=== PATIENT | male | born 1960 | race Caucasian/White ===

== ENCOUNTER 2018-06-07 21:46 | Outpatient (CLI) | payer OTHER, SELFPAY ==
[2018-06-07 22:31] LABS: Abs Immature Grans 0.05 k/cumm (0.0-0.09); Absolute Basophil Count 0.04 k/cumm (0.0-0.2); Absolute Eosinophil Count 0.12 k/cumm (0.0-0.7); Absolute Lymphocyte Count 1.66 k/cumm (1.2-3.4); Absolute Monocyte Count 0.96 k/cumm (0.11-0.7); Absolute Neutrophil Count 4.69 k/cumm (1.2-6.7); Basophils % 0.5; Eosinophils % 1.6; HCT 40.4 % (40.0-50.0); HGB 13.8 g/dL (13.5-17.5); Immature Grans % 0.7; Lymphocytes % 22.1; Mean Corp. HGB Concentration 34.2 g/dL (32.0-36.0); Mean Corpuscular Hemoglobin 29.3 pg (27.0-33.0); Mean Corpuscular Volume 85.8 fL (80-95); Mean Platelet Volume 9.3 fL (8.0-11.0); Monocytes % 12.8; Neutrophils % 62.3; Platelet Count 239 x1000/uL (130-400); RBC 4.71 m/cumm (4.50-6.00); RBC Distribution Width 14.6 % (11.8-14.1); White Blood Cell Count 7.52 k/cumm (4.4-10.8)
[2018-06-07 22:57] LABS: Anion Gap 10.9 mmol/L (3-11); BUN 16 mg/dL (7-18); CO2 28.1 mmol/L (21.0-32.0); CREATININE 1.09 mg/dL (0.70-1.30); Calcium 9.5 mg/dL (8.5-10.1); Chloride 99 mmol/L (98-107); Glucose 95 mg/dL (70-100); Sodium 138 mmol/L (136-145)
[2018-06-10 10:35] LABS: Cryoglobulin, S Negative %ppt (Negative)
== END 2018-06-07 22:06 ==
PROVIDERS: PCP Nurse Practitioner; Visit Provider Internal Medicine Rheumatology
DX: M25.50 Pain in unspecified joint (principal); R50.9 Fever, unspecified; I10 Essential (primary) hypertension; Z15.89 Genetic susceptibility to other disease
CPT/HCPCS: 36410; 80048; 87040; 87077; 82595; 85025

== ENCOUNTER 2018-12-23 15:26 | Outpatient (REF) | payer OTHER, SELFPAY ==
[2018-12-23 19:30] LABS: COMMENT (LAB VIEW ONLY) 158.63 mg/dL; Microalb ug/mg Crea 3.9 ug/mg Cr
== END 2018-12-23 15:46 ==
LOC: LBN 15:26
PROVIDERS: PCP Nurse Practitioner; Visit Provider Nurse Practitioner
DX: E11.9 Type 2 diabetes mellitus without complications (principal)
CPT/HCPCS: 82043; 82570

== ENCOUNTER 2019-04-13 09:27 | Outpatient (CLI) | payer OTHER, SELFPAY ==
[2019-04-13 10:04] LABS: HCT 42.1 % (40.0-50.0); HGB 13.9 g/dL (13.5-17.5); Mean Corpuscular Hemoglobin 28.4 pg (27.0-33.0); Mean Corpuscular Volume 85.9 fL (80-95); Mean Platelet Volume 9.4 fL (8.0-11.0); Platelet Count 267 x1000/uL (130-400); RBC Distribution Width 14.2 % (11.8-14.1); White Blood Cell Count 5.52 k/cumm (4.4-10.8)
[2019-04-13 10:33] LABS: ALT 25 U/L (12-78); AST 20 U/L (15-37); Albumin 3.4 g/dL (3.4-5.0); Alkaline Phosphatase 103 U/L (46-116); Anion Gap 10.3 mmol/L (3-11); BUN 16 mg/dL (7-18); Bilirubin, Total 0.3 mg/dL (0.2-1.0); CO2 25.7 mmol/L (21.0-32.0); CREATININE 1.07 mg/dL (0.70-1.30); Calcium 8.9 mg/dL (8.5-10.1); Calculated LDL 140 mg/dL; Chloride 105 mmol/L (98-107); Cholesterol 196 mg/dL (50-200); Glucose 106 mg/dL (70-100); HDL Cholesterol 42 mg/dL (40-60); Potassium 4.7 mmol/L (3.5-5.1); Sodium 141 mmol/L (136-145); Total Protein 6.8 g/dL (6.4-8.2); Triglyceride 71 mg/dL (30-150)
== END 2019-04-13 09:47 ==
PROVIDERS: PCP Nurse Practitioner; Visit Provider Nurse Practitioner
DX: I10 Essential (primary) hypertension (principal); E78.5 Hyperlipidemia, unspecified; E11.9 Type 2 diabetes mellitus without complications; E66.9 Obesity, unspecified
CPT/HCPCS: 36415; 80053; 80061; 83721; 85027

== ENCOUNTER 2019-12-19 08:12 | Outpatient (RCR) | payer OTHER, SELFPAY ==
[2019-12-19 08:38] LABS: Abs Immature Grans 0.03 k/cumm (0.0-0.09); Absolute Basophil Count 0.05 k/cumm (0.0-0.2); Absolute Eosinophil Count 0.21 k/cumm (0.0-0.7); Absolute Lymphocyte Count 2.14 k/cumm (1.2-3.4); Absolute Monocyte Count 0.74 k/cumm (0.11-0.7); Absolute Neutrophil Count 2.95 k/cumm (1.2-6.7); Basophils % 0.8; Eosinophils % 3.4; HCT 41.7 % (40.0-50.0); Immature Grans % 0.5 %; Mean Corp. HGB Concentration 33.6 g/dL (32.0-36.0); Mean Corpuscular Hemoglobin 28.1 pg (27.0-33.0); Mean Corpuscular Volume 83.7 fL (80-95); Mean Platelet Volume 9.3 fL (8.0-11.0); Monocytes % 12.1; Neutrophils % 48.2; Platelet Count 292 x1000/uL (130-400); RBC 4.98 m/cumm (4.50-6.00); RBC Distribution Width 14.6 % (11.8-14.1); White Blood Cell Count 6.12 k/cumm (4.4-10.8)
[2019-12-19 08:51] LABS: ALT 21 U/L (16-63); AST 22 U/L (15-37); Albumin 3.4 g/dL (3.4-5.0); Alkaline Phosphatase 102 U/L (46-116); Anion Gap 8.1 mmol/L (3-11); BUN 17 mg/dL (7-18); Bilirubin, Total 0.3 mg/dL (0.2-1.0); CO2 26.9 mmol/L (21.0-32.0); CREATININE 1.04 mg/dL (0.70-1.30); Calcium 9.2 mg/dL (8.5-10.1); Chloride 102 mmol/L (98-107); Glucose 100 mg/dL (74-106); Potassium 4.3 mmol/L (3.5-5.1); Sodium 137 mmol/L (136-145); Total Protein 7.3 g/dL (6.4-8.2)
[2019-12-19] MEDS: Normal Saline Flush 10 ML SYR 30 ML IVP (12:30)
== END 2019-12-22 23:59 | disposition home or self-care (01) ==
LOC: INF 08:12
PROVIDERS: PCP Nurse Practitioner; Visit Provider Internal Medicine Hematology & Oncology
DX: C15.5 Malignant neoplasm of lower third of esophagus (principal)
CPT/HCPCS: 36415; 80053; 85025

== ENCOUNTER 2019-12-30 15:16 | Emergency (ER) | payer OTHER, SELFPAY ==
--- NOTE | 2019-12-30 15:17 | ED.GENADUL_ITS ---
Discharge Plan Disposition Patient Disposition: HOME Condition: Good Discharge Details Chief Complaint: Fever Clinical Impression: Fever, Anemia Primary Care Provider: Baylee Lozoya ED Provider: Lidia Cohen Home Meds and New Rx's Prescriptions: Continued hawthorn 500 mg capsule 565 mg PO BID RF: 0 losartan 100 mg tablet 100 mg PO DAILY Qty: 90 RF: 3 colchicine 0.6 mg tablet 0.6 mg PO DAILY Qty: 30 RF: 0 melatonin 5 MG tablet 5 mg PO HS RF: 0 nystatin 15 GM cream 1 gm Topical TID Qty: 15 RF: 3 lidocaine patch 5% 5 % 1 patch Topical RF: 0 calcipotriene [Dovonex] 0.005 % cream 1 applic TP BID PRNRF: 0 spironolactone 25 mg tablet 25 mg PO DAILY 90 Days Qty: 90 RF: 3 ibuprofen 800 mg tablet 800 mg PO TID PRN (Reason: fever or pain) Qty: 270 RF: 3 omeprazole 20 mg capsule,delayed release(DR/EC) 20 mg PO DAILY RF: 0 metformin 500 mg tablet extended release 24hr 1,000 mg PO DAILY Qty: 180 RF: 3 morphine 15 mg capsule 15 mg PO RF: 0 acetaminophen 500 mg capsule 1,000 mg PO Q6H PRNRF: 0 aspirin [Aspir-81] 81 MG tablet,delayed release (DR/EC) 81 mg PO DAILY RF: 0 magnesium oxide 400 MG tablet 400 mg PO DAILY Qty: 100 RF: 0 Discharge Instructions Instructions: Fever in Adults (ED), Anemia (ED) Additional Instructions: Your labs are reassuring today. You do have worsening anemia. I am concerned that you may have COVID-19. Your test result for this is pending. We will call you with any positive results. Please quarantine at home until you hear results. Please encourage water intake. Please stay in touch with oncology. If you develop new/worsening symptoms please seek care urgently once again. Stand Alone Forms: PENDING COVID-19 TESTING Referrals: Baylee Lozoya, LUCAS [Primary Care Provider] - Discharge Data Discharge Date/Time-TO BE ENTERED AT DEPARTURE: 12/30/19 19:00 Medical Decision Making Patient is a pleasant 59-year-old gentleman presents today with chief complaint of fever. Patient is currently undergoing chemo and radiation for esophageal cancer. Reports that he is having daily radiation and twice weekly chemotherapy. Reports that he had to cancel his radiation appointment this morning as he had a fever of 101.4 ?F at home. Patient reports that he has chronic intermittent fevers of unknown origin. States that this started long before his cancer diagnosis. States that he has had this evaluated multitude of times with no known source. He reports that typically he is able to use Tylenol with good relief of his symptoms. However, he states that today the Tylenol took longer to work than typical. He consulted with his oncologist who advised that he come in for evaluation of potential neutropenic fever. Patient reports that he has a chronic cough which is unchanged. He denies any dyspnea, pleuritic chest pain, increased sputum production or change in color. States he had some clear nasal discharge first thing this morning but that this and rizvi bsequently resolved. He denies any sinus pain. No ear pain. Denies any sore throat. Denies chest pain, shortness of breath. Denies any abdominal discomfort. No change in stools. Normal bowel movement today. Denies any dysuria, increased frequency urgency. No new back pain. Denies any rash. On exam, patient is resting comfortably. Currently afebrile. He is slightly tachycardic at 101 but vital signs are without abnormality otherwise. He appears nontoxic. Appears well-hydrated. Normal HEENT exam. No nuchal rigidity. No rash. Lungs are clear. Normal cardiac exam. Abdomen is benign. No lower extremity swelling or rash noted. No CVA tenderness noted. As there is concern for the patient having a neutropenic fever, plan for laboratory evaluation. Will obtain chest x-ray as the patient has had this chronic cough to ensure no underlying pneumonia. Lung sounds were clear on exam. Discussed this plan with the patient who is in agreement. Labs reviewed. Patient's white count is slightly low at 3.15. However, his absolute neutrophil count is normal at 2.32. His lymphocyte count however is low at 0.45. Patient is anemic with a hemoglobin of 8.8, this is downtrending from 9.74 days ago. Lactate is normal at 1.0. Remaining labs are pending. With a low lymphocyte count and current pandemic, COVID is on the differential although he is not endorsing cold-like symptoms at this time. If patient is able to be discharged home, will plan for outpatient Waqas testing. Will consult with oncology once remaining labs are back. CXR reviewed by radiologist: FINDINGS: Lungs: Unremarkable. No consolidation. Pleural space: Unremarkable. No pleural effusion. No pneumothorax. Heart/Mediastinum: Unremarkable. No cardiomegaly. Bones/joints: There are degenerative changes of the thoracic spine. IMPRESSION: Degenerative changes of the thoracic spine. No significant change allowing for differences in technique when compared to the earlier study. In light of the patient's symptoms further evaluation could be obtained with a CT scan of the chest. Requested consulted with oncology. Spoke with Dr. Angeles Laura. We discussed the patient's presentation and laboratory evaluation. I did express my concern for potential COVID-19. Will order an in department test as Dr. Laura advises that the patient's chemotherapy and radiation will have to be held until this test is returned. She agrees that discharge to home sounds appropriate in this patient as he is currently asymptomatic with stable vital signs and reassuring laboratory evaluation. Patient has plan for radiation treatment on Thursday. He will stay in touch oncology. We will contact him with any positive results. Patient was given strict return precautions and is able to return with any new or worsening symptoms. He continues to be asymptomatic while here. All of his questions and concerns were addressed and he is in agreement this plan. [facility] General Mode of arrival: ambulatory . Date/Time Provider Initiated Documentation: 12/30/19 15:17 . Limitations to Documentation: no limitations . Information obtained by: patient, RN/MD (called by oncology group prior to arrival) and RN notes reviewed . History of Present Illness 59 year old M presents to the emergency department with the chief complaint of fever, possibly neutropenic in the setting of recent chemotherapy and radia, described as similar to prior episodes (Reports chronic intermittent fevers of unknown origin), Quality is described as other (Patient denies any pain), Patient started experiencing this hour(s) and it has been now resolved. Medication improves symptom(s), (Resolved 2 to 3 hours after oral Tylenol dosing) No exacerbating factors reported . Patient notes cough (Reports chronic, unchan ged nonproductive cough), fever/chills, loss of appetite (States that his appetite is increasing although chronically low associated with his cancer treatment) and malaise; denies chest pain, diaphoresis, headaches, nausea/vomiting, rash, shortness of breath, syncope and weakness. Patient did receive the following treatments prior to arrival, other (Acetaminophen) Related Data Home Medications Medication Instructions Recorded Confirmed aspirin [Aspir-81] 81 mg PO DAILY 02/14/14 12/30/19 melatonin 5 mg PO HS 09/15/16 12/30/19 magnesium oxide 400 mg PO DAILY #100 tab 12/21/16 12/30/19 nystatin 1 gm TOPICAL TID #15 gm 02/12/17 12/30/19 Lidocaine Patch 5% 1 patch TOPICAL 04/05/18 12/30/19 hawthorn 500 mg capsule 565 mg PO BID cap 06/30/18 12/30/19 calcipotriene 0.005 % topical cream 1 applic TP BID PRN 12/21/18 12/30/19 spironolactone 25 mg tablet 25 mg PO DAILY 90 Days #90 tab-cap 03/14/19 12/30/19 colchicine 0.6 mg tablet 0.6 mg PO DAILY #30 tab 04/13/19 12/30/19 ibuprofen 800 mg tablet 800 mg PO TID PRN #270 tab-cap 06/06/19 12/30/19 losartan 100 mg tablet 100 mg PO DAILY #90 tab-cap 10/12/19 12/30/19 omeprazole 20 mg capsule,delayed 20 mg PO DAILY 10/12/19 12/30/19 release metformin 500 mg tablet,extended 1,000 mg PO DAILY #180 tab 11/17/19 12/30/19 release 24hr acetaminophen 500 mg capsule 1,000 mg PO Q6H PRN cap 11/24/19 12/30/19 morphine 15 mg capsule 15 mg PO cap 11/24/19 12/30/19 Previous Rx's Medication Instructions Recorded magnesium oxide 400 mg PO DAILY #100 tab 12/21/16 spironolactone 25 mg tablet 25 mg PO DAILY 90 Days #90 tab-cap 03/14/19 colchicine 0.6 mg tablet 0.6 mg PO DAILY #30 tab 04/13/19 ibuprofen 800 mg tablet 800 mg PO TID PRN #270 tab-cap 06/06/19 losartan 100 mg tablet 100 mg PO DAILY #90 tab-cap 10/12/19 metformin 500 mg tablet,extended 1,000 mg PO DAILY #180 tab 11/17/19 release 24hr Allergies Allergy/AdvReac Type Severity Reaction Status Date / Time lisinopril AdvReac Mild Cough Verified 12/30/19 15:26 Penicillins AdvReac Mild belly ache Verified 12/30/19 15:26 Review of Systems Constitutional Constitutional: Reports as per HPI, Reports chills, Reports fever(s), Denies headache(s), Reports malaise and Reports poor appetite Eyes Eyes: Reports as per HPI, Denies change in vision, Denies eye discharge and Denies irritation ENT Ears, Nose, Mouth, and Throat: Reports as per HPI, Denies bleeding gums, Denies dental pain, Denies vertigo, Denies dizziness, Denies ear discharge, Denies otalgia, Denies headache(s), Denies lip swelling, Denies mouth pain, Denies nasal congestion, Reports nasal discharge (Reports this morning a small amount of nasal discharge, since resolved), Denies nasal trauma, Denies neck pain, Denies sinus pain, Denies sinus pressure, Denies sore throat and Denies throat swelling Cardiovascular Cardiovascular: Reports as per HPI, Denies chest pain, Denies dyspnea and Denies dyspnea on exertion Respiratory Respiratory: Reports as per HPI, Denies chest congestion, Reports cough, Denies hemoptysis, Denies excessive phlegm production, Denies pain on inspiration, Denies pain with cough, Denies dyspnea, Denies dyspnea on exertion, Denies stridor and Denies wheezing Gastrointestinal Gastrointestinal: Reports as per HPI, Denies abdominal pain, Denies change in bowel habits, Denies nausea and Denies vomiting Genitourinary Genitourinary: Reports system reviewed and no additional complaints, except as documented (Denies any dyspnea, increased frequency urgency) Musculoskeletal Musculoskeletal: Denies neck pain Integumentary/Breasts Skin/Breast: Reports as per HPI and Denies rash Neurologic Neurologic: Reports as per HPI, Denies vertigo, Denies dizziness and Denies headache(s) Allergic/Immunologic Allergic/Immunologic: Denies lip swelling, Denies throat swelling and Denies wheezing [facility] Medical History Arthralgia (Acute) DM (diabetes mellitus) Essential hypertension GERD (gastroesophageal reflux disease) Tobacco use Surgical History Colonoscopy - MAC (07/24/17) Family History Mother Cancer Father Cancer Social History Smoking/Tobacco Use Status: Current every day Tobacco Type: cigarettes Smoking packs per day: 1 Smoking cigarettes per day: 20.0 Years smoked: 30 Smoking pack- years: 30.00 Tobacco: How many years used: 30 Smoking risk assessment performed?: Yes Alcohol Intake: current Alcohol Intake frequency: a few times a month Drug use: Never Substance use type: does not use Adopted: No Caregiver/Support person: No Foster care: No Household members: spouse Housing: house Number of Children: 3 Communication Needs: None current occupation: [employer] What type of physical activity do you participate in: walking and other Details: walks a lot at work, nothing aerobic, some house projects Frequency: 5-6 times per week Do you feel safe in your relationship?: Yes Exam Const General: cooperative, healthy appearing, comfortable, no acute distress, well developed and well groomed Nutritional Appearance: average body habitus and well nourished Orientation: alert and awake [facility] Head: normal to inspection, normocephalic and atraumatic Ears: hearing grossly normal bilaterally, external ears normal and TM's normal bilaterally General nose exam: external nose normal and nares normal Face and sinus: normal facial exam, sinuses nontender and face symmetric Mouth: oral mucosae normal, lip normal, tongue normal, oropharynx normal and moist mucous membranes Teeth and gingiva: dentition normal Throat: posterior oropharynx normal, tonsils normal and uvula midline Eyes General: appearance normal, both eyes and all related structures Neck Neck: normal visual inspection, full ROM, no lymphadenopathy and no meningeal signs Resp Effort & Inspection: normal respiratory effort, able to speak in complete sentences and no respiratory distress Auscultation: clear to auscultation bilaterally, no rales, no rhonchi and no wheezes Cardio Rate: regular rate Rhythm: regular rhythm Heart Sounds: S1 normal and S2 normal GI Inspection: normal to inspection Palpation: soft, no hepatosplenomegaly, not firm, no guarding, not rigid and nontender Percussion: normal to percussion Auscultation: normal bowel sounds Back/Spine/Pelvis Back: no CVA tenderness Skin General skin exam: no rashes or lesions noted Neuro General: patient alert and patient awake Cognition: normal cognition Speech: speech normal Gait: normal gait Extrem General: normal to inspection, capillary refill normal, no joint enlargement, no pedal edema, no calf tenderness and normal gait Psych Appearance: grossly normal and well kempt Mental Status: mental status grossly normal Speech and Movement: speech and movement normal
[2019-12-30 15:23] VITALS: BP 124/81; PULSE 101; RESP 18; TEMP 36.6; O2SAT 99
--- NOTE | 2019-12-30 15:41 | DI.RAD_ITS ---
EXAM: XR PORTABLE CHEST AP CLINICAL HISTORY: neurtropenic fever, cough. TECHNIQUE: 2D digital imaging was performed. COMPARISON: CR CHEST 2 VIEWS PA,LAT from 12/20/2016 CR LEFT SHOULDER COMPLETE from 02/22/2018 FINDINGS: LUNGS: Clear. No pleural abnormality seen. HEART: Normal. MEDIASTINUM: Normal. OTHER FINDINGS: None. IMPRESSION: No acute pulmonary findings. DATA REPOSITORY: RADIATION DOSE DELIVERED:
[2019-12-30] MEDS: Normal Saline 1,000 ML 1000 ML IV (16:27)
[2019-12-30 16:34] LABS: Abs Immature Grans 0.02 k/cumm (0.0-0.09); Absolute Basophil Count 0.01 k/cumm (0.0-0.2); Absolute Eosinophil Count 0.11 k/cumm (0.0-0.7); Absolute Lymphocyte Count 0.45 k/cumm (1.2-3.4); Absolute Monocyte Count 0.24 k/cumm (0.11-0.7); Absolute Neutrophil Count 2.32 k/cumm (1.2-6.7); Basophils % 0.3; Eosinophils % 3.5; HCT 26.8 % (40.0-50.0); HGB 8.8 g/dL (13.5-17.5); Immature Grans % 0.6 %; Lymphocytes % 14.3; Mean Corp. HGB Concentration 32.8 g/dL (32.0-36.0); Mean Corpuscular Hemoglobin 28.2 pg (27.0-33.0); Mean Corpuscular Volume 85.9 fL (80-95); Mean Platelet Volume 9.1 fL (8.0-11.0); Monocytes % 7.6; Neutrophils % 73.7; Platelet Count 259 x1000/uL (130-400); RBC 3.12 m/cumm (4.50-6.00); RBC Distribution Width 14.4 % (11.8-14.1); White Blood Cell Count 3.15 k/cumm (4.4-10.8)
[2019-12-30 16:53] LABS: C-Reactive Protein 3.78 mg/dL (0.0-0.3)
[2019-12-30 16:54] LABS: ALT 19 U/L (16-63); AST 17 U/L (15-37); Albumin 3.1 g/dL (3.4-5.0); Alkaline Phosphatase 79 U/L (46-116); Anion Gap 7.2 mmol/L (3-11); BUN 15 mg/dL (7-18); Bilirubin, Total 0.2 mg/dL (0.2-1.0); CO2 27.8 mmol/L (21.0-32.0); CREATININE 0.88 mg/dL (0.70-1.30); Calcium 8.7 mg/dL (8.5-10.1); Chloride 100 mmol/L (98-107); Glucose 101 mg/dL (74-106); Potassium 4.1 mmol/L (3.5-5.1); Sodium 135 mmol/L (136-145); Total Protein 6.7 g/dL (6.4-8.2)
--- NOTE | 2019-12-30 17:07 | DI.VRAD_ITS ---
PROCEDURE INFORMATION: Exam: Portable XR Chest, 1 View Exam date and time: 12/30/2019 4:53 PM Age: 59 years old Clinical indication: Cough and fever; Patient HX: Neurtropenic fever, cough TECHNIQUE: Imaging protocol: Portable XR of the chest Views: 1 view. COMPARISON: CR CHEST 2 VIEWS PA,LAT 12/20/2016 12:06 PM FINDINGS: Lungs: Unremarkable. No consolidation. Pleural space: Unremarkable. No pleural effusion. No pneumothorax. Heart/Mediastinum: Unremarkable. No cardiomegaly. Bones/joints: There are degenerative changes of the thoracic spine. IMPRESSION: Degenerative changes of the thoracic spine. No significant change allowing for differences in technique when compared to the earlier study. In light of the patient's symptoms further evaluation could be obtained with a CT scan of the chest. Dictated and Authenticated by: Ismael Yu MD. Ordering:DORA Murillo MD
[2019-12-30 17:17] LABS: Procalcitonin < 0.1 ng/mL
[2019-12-30 17:20] LABS: Bilirubin Negative (Negative); Blood Negative (Negative); Clarity Clear (Clear); Glucose Negative (Negative); Ketones Negative (Negative); Leukocyte Esterase Negative (Negative); Nitrite Negative (Negative); Urobilinogen 0.2 EU/dL (Up TO 0.2)
[2019-12-30 17:30] VITALS: BP 128/73; PULSE 82; RESP 18; TEMP 36.6; O2SAT 99
[2019-12-31 11:19] LABS: COVID-19 RT-PCR UVMMC Result Negative (Negative)
== END 2019-12-30 19:00 | disposition home or self-care (01) ==
PROVIDERS: Emergency Provider Physician Assistant; PCP Nurse Practitioner
DX: D64.9 Anemia, unspecified (principal); R50.9 Fever, unspecified; R05 Cough; C15.9 Malignant neoplasm of esophagus, unspecified; Z79.899 Other long term (current) drug therapy; E11.9 Type 2 diabetes mellitus without complications; Z79.84 Long term (current) use of oral hypoglycemic drugs; I10 Essential (primary) hypertension; F17.210 Nicotine dependence, cigarettes, uncomplicated
CPT/HCPCS: 36415; 80053; 84145; 87040; 96360; 99284; U0003; 71045; 81003; 83605; 83735; 85025; 86140; 87086; 99285

== ENCOUNTER 2020-01-17 01:13 | Outpatient (RCR) | payer OTHER, SELFPAY ==
[2019-12-26] MEDS: Normal Saline Flush 10 ML SYR IVP (08:40)
[2019-12-26 08:58] LABS: Abs Immature Grans 0.08 k/cumm (0.0-0.09); Absolute Basophil Count 0.04 k/cumm (0.0-0.2); Absolute Eosinophil Count 0.18 k/cumm (0.0-0.7); Absolute Lymphocyte Count 0.73 k/cumm (1.2-3.4); Absolute Monocyte Count 0.42 k/cumm (0.11-0.7); Absolute Neutrophil Count 3.64 k/cumm (1.2-6.7); Basophils % 0.8; Eosinophils % 3.5; HCT 29.6 % (40.0-50.0); HGB 9.7 g/dL (13.5-17.5); Immature Grans % 1.6 %; Lymphocytes % 14.3; Mean Corp. HGB Concentration 32.8 g/dL (32.0-36.0); Mean Corpuscular Hemoglobin 28.2 pg (27.0-33.0); Mean Platelet Volume 9.5 fL (8.0-11.0); Monocytes % 8.3; Neutrophils % 71.5; Platelet Count 297 x1000/uL (130-400); RBC 3.44 m/cumm (4.50-6.00); RBC Distribution Width 14.2 % (11.8-14.1); White Blood Cell Count 5.09 k/cumm (4.4-10.8)
[2019-12-26 09:09] LABS: ALT 22 U/L (16-63); AST 26 U/L (15-37); Albumin 3.1 g/dL (3.4-5.0); Alkaline Phosphatase 88 U/L (46-116); Anion Gap 7.2 mmol/L (3-11); BUN 16 mg/dL (7-18); Bilirubin, Total 0.3 mg/dL (0.2-1.0); CO2 28.8 mmol/L (21.0-32.0); CREATININE 0.93 mg/dL (0.70-1.30); Calcium 8.7 mg/dL (8.5-10.1); Chloride 103 mmol/L (98-107); Glucose 110 mg/dL (74-106); Potassium 4.2 mmol/L (3.5-5.1); Sodium 139 mmol/L (136-145); Total Protein 6.9 g/dL (6.4-8.2)
[2019-12-26 09:11] LABS: Diff Comment RBC Morph Reviewed; Poikilocytes 1+; Polychromasia Present
[2020-01-02] MEDS: Normal Saline Flush 10 ML SYR IVP (08:48)
[2020-01-02 08:54] LABS: Abs Immature Grans 0.05 k/cumm (0.0-0.09); Absolute Basophil Count 0.03 k/cumm (0.0-0.2); Absolute Eosinophil Count 0.11 k/cumm (0.0-0.7); Absolute Lymphocyte Count 0.47 k/cumm (1.2-3.4); Absolute Monocyte Count 0.31 k/cumm (0.11-0.7); Absolute Neutrophil Count 1.09 k/cumm (1.2-6.7); Basophils % 1.5; Eosinophils % 5.3; HCT 26.5 % (40.0-50.0); HGB 8.8 g/dL (13.5-17.5); Immature Grans % 2.4 %; Lymphocytes % 22.8; Mean Corp. HGB Concentration 33.2 g/dL (32.0-36.0); Mean Corpuscular Hemoglobin 28.7 pg (27.0-33.0); Mean Corpuscular Volume 86.3 fL (80-95); Mean Platelet Volume 9.9 fL (8.0-11.0); Platelet Count 258 x1000/uL (130-400); RBC 3.07 m/cumm (4.50-6.00); RBC Distribution Width 15.1 % (11.8-14.1); White Blood Cell Count 2.06 k/cumm (4.4-10.8)
[2020-01-02 09:11] LABS: ALT 21 U/L (16-63); AST 46 U/L (15-37); Albumin 2.9 g/dL (3.4-5.0); Alkaline Phosphatase 86 U/L (46-116); Anion Gap 9.2 mmol/L (3-11); BUN 15 mg/dL (7-18); Bilirubin, Total 0.4 mg/dL (0.2-1.0); CO2 25.8 mmol/L (21.0-32.0); CREATININE 0.86 mg/dL (0.70-1.30); Calcium 8.6 mg/dL (8.5-10.1); Chloride 103 mmol/L (98-107); Glucose 125 mg/dL (74-106); Potassium 4.9 mmol/L (3.5-5.1); Sodium 138 mmol/L (136-145); Total Protein 6.7 g/dL (6.4-8.2)
[2020-01-02 09:12] LABS: Calculated LDL 93 mg/dL (<100); Cholesterol 164 mg/dL (<200); HDL Cholesterol 45 mg/dL (40-60); Triglyceride 132 mg/dL (<150)
[2020-01-09] MEDS: Normal Saline Flush 10 ML SYR IVP (07:46)
[2020-01-09 07:55] LABS: Abs Immature Grans 0.23 k/cumm (0.0-0.09); HCT 33.6 % (40.0-50.0); HGB 10.8 g/dL (13.5-17.5); Mean Corp. HGB Concentration 32.1 g/dL (32.0-36.0); Mean Corpuscular Hemoglobin 28.3 pg (27.0-33.0); Mean Corpuscular Volume 88.2 fL (80-95); Mean Platelet Volume 8.7 fL (8.0-11.0); Platelet Count 269 x1000/uL (130-400); RBC 3.81 m/cumm (4.50-6.00); RBC Distribution Width 16.9 % (11.8-14.1)
[2020-01-09 08:11] LABS: ALT 22 U/L (16-63); AST 17 U/L (15-37); Albumin 3.4 g/dL (3.4-5.0); Alkaline Phosphatase 93 U/L (46-116); Anion Gap 7.7 mmol/L (3-11); BUN 22 mg/dL (7-18); Bilirubin, Total 0.3 mg/dL (0.2-1.0); CO2 30.3 mmol/L (21.0-32.0); CREATININE 0.94 mg/dL (0.70-1.30); Chloride 103 mmol/L (98-107); Glucose 91 mg/dL (74-106); Potassium 3.7 mmol/L (3.5-5.1); Sodium 141 mmol/L (136-145); Total Protein 7.1 g/dL (6.4-8.2)
[2020-01-09 08:25] LABS: Absolute Lymphocyte Count 0.62 k/cumm (1.2-3.4); Absolute Monocyte Count 0.53 k/cumm (0.11-0.7); Absolute Neutrophil Count 2.95 k/cumm (1.2-6.7)
[2020-01-09 08:26] LABS: Absolute Basophil Count 0.04 k/cumm (0.0-0.2); Absolute Eosinophil Count 0.13 k/cumm (0.0-0.7)
[2020-01-09 08:27] LABS: Anisocytosis 1+; Diff Comment Manual Differential; Poikilocytes 1+; Polychromasia Present
[2020-01-17] MEDS: Normal Saline Flush 10 ML SYR IVP (08:30)
[2020-01-17 08:53] LABS: Abs Immature Grans 0.02 k/cumm (0.0-0.09); Absolute Basophil Count 0.01 k/cumm (0.0-0.2); Absolute Eosinophil Count 0.05 k/cumm (0.0-0.7); Absolute Lymphocyte Count 0.32 k/cumm (1.2-3.4); Absolute Monocyte Count 0.24 k/cumm (0.11-0.7); Absolute Neutrophil Count 2.56 k/cumm (1.2-6.7); Basophils % 0.3; Eosinophils % 1.6; HCT 29.3 % (40.0-50.0); HGB 9.6 g/dL (13.5-17.5); Immature Grans % 0.6 %; Mean Corp. HGB Concentration 32.8 g/dL (32.0-36.0); Mean Corpuscular Hemoglobin 28.6 pg (27.0-33.0); Mean Corpuscular Volume 87.2 fL (80-95); Mean Platelet Volume 9.9 fL (8.0-11.0); Monocytes % 7.5; RBC 3.36 m/cumm (4.50-6.00); RBC Distribution Width 17.6 % (11.8-14.1)
[2020-01-17 09:09] LABS: Anisocytosis 2+; Diff Comment RBC Morph Reviewed; Platelet Count 145 x1000/uL (130-400)
[2020-01-17 09:10] LABS: Basophilic Stippling Present; Microcytosis 1+; Poikilocytes 2+; Polychromasia Present
[2020-01-17 09:29] LABS: ALT 19 U/L (16-63); AST 26 U/L (15-37); Albumin 3.2 g/dL (3.4-5.0); Alkaline Phosphatase 73 U/L (46-116); Anion Gap 6.2 mmol/L (3-11); BUN 18 mg/dL (7-18); Bilirubin, Total 0.3 mg/dL (0.2-1.0); CO2 28.8 mmol/L (21.0-32.0); Calcium 9.1 mg/dL (8.5-10.1); Chloride 101 mmol/L (98-107); Glucose 114 mg/dL (74-106); Potassium 3.8 mmol/L (3.5-5.1); Sodium 136 mmol/L (136-145); Total Protein 7.1 g/dL (6.4-8.2)
== END 2020-01-22 23:59 | disposition home or self-care (01) ==
LOC: INF 01:13
PROVIDERS: PCP Nurse Practitioner; Visit Provider Nurse Practitioner Adult Health
DX: C15.5 Malignant neoplasm of lower third of esophagus (principal); Z45.2 Encounter for adjustment and management of vascular access device
CPT/HCPCS: 36415; 80053; 80061; 85025

== ENCOUNTER 2020-01-18 09:56 | Outpatient (CLI) | payer OTHER, SELFPAY ==
--- NOTE | 2020-01-18 | DI.RAD_ITS ---
EXAM: XR CHEST 2V PA LATERAL CLINICAL HISTORY: ESOPHAGEAL CA ON CHEMORADIATION, FEVERS, ? INFECTION TECHNIQUE: 2D digital imaging was performed. COMPARISON: CR,XR XR PORTABLE CHEST AP from 12/30/2019 FINDINGS: MEDIASTINUM: Normal. HEART: Normal. PULMONARY VASCULATURE: Normal. LUNGS: Clear. PLEURAL SPACE: No pleural effusion or pneumothorax. BONE:Degenerative changes are seen in the thoracic spine. IMPRESSION: No acute pulmonary findings. DATA REPOSITORY: RADIATION DOSE DELIVERED:
== END 2020-01-18 10:16 ==
PROVIDERS: PCP Nurse Practitioner; Visit Provider Internal Medicine Hematology & Oncology
DX: R50.9 Fever, unspecified (principal); C15.5 Malignant neoplasm of lower third of esophagus; Z92.21 Personal history of antineoplastic chemotherapy; Z92.3 Personal history of irradiation
CPT/HCPCS: 71046

== ENCOUNTER 2020-01-18 11:11 | Outpatient (CLI) | payer OTHER, SELFPAY ==
[2020-01-18 15:12] LABS: Abs Immature Grans 0.01 k/cumm (0.0-0.09); Absolute Lymphocyte Count 0.08 k/cumm (1.2-3.4); Absolute Monocyte Count 0.17 k/cumm (0.11-0.7); HCT 27.6 % (40.0-50.0); HGB 9.2 g/dL (13.5-17.5); Immature Grans % 0.3 %; Lymphocytes % 2.1; Mean Corp. HGB Concentration 33.3 g/dL (32.0-36.0); Mean Corpuscular Hemoglobin 28.5 pg (27.0-33.0); Mean Corpuscular Volume 85.4 fL (80-95); Mean Platelet Volume 10.2 fL (8.0-11.0); Monocytes % 4.4; Neutrophils % 93.2; Platelet Count 151 x1000/uL (130-400); RBC 3.23 m/cumm (4.50-6.00); RBC Distribution Width 16.8 % (11.8-14.1); White Blood Cell Count 3.86 k/cumm (4.4-10.8)
[2020-01-18 15:33] LABS: Anisocytosis 2+; Basophilic Stippling Present; Microcytosis 1+; Polychromasia Present
[2020-01-18 15:34] LABS: Poikilocytes 2+
[2020-01-18 15:35] LABS: Diff Comment RBC Morph Reviewed
[2020-01-18 16:03] LABS: ALT 23 U/L (16-63); AST 24 U/L (15-37); Albumin 3.2 g/dL (3.4-5.0); Alkaline Phosphatase 75 U/L (46-116); Anion Gap 10.3 mmol/L (3-11); BUN 21 mg/dL (7-18); Bilirubin, Total 0.3 mg/dL (0.2-1.0); CO2 24.7 mmol/L (21.0-32.0); CREATININE 0.69 mg/dL (0.70-1.30); Calcium 8.8 mg/dL (8.5-10.1); Chloride 102 mmol/L (98-107); Glucose 135 mg/dL (74-106); Potassium 4.2 mmol/L (3.5-5.1); Sodium 137 mmol/L (136-145); Total Protein 6.6 g/dL (6.4-8.2)
== END 2020-01-18 11:31 ==
PROVIDERS: Nurse Practitioner Adult Health; PCP Nurse Practitioner; Visit Provider Internal Medicine Hematology & Oncology
DX: R50.9 Fever, unspecified (principal); C15.5 Malignant neoplasm of lower third of esophagus
CPT/HCPCS: 36415; 80053; 87040; 81003; 85025

== ENCOUNTER 2020-01-19 09:22 | Outpatient (CLI) | payer OTHER, SELFPAY ==
[2020-01-19 13:43] LABS: Bilirubin Negative (Negative); Blood Negative (Negative); Clarity Clear (Clear); Glucose Negative (Negative); Ketones Negative (Negative); Leukocyte Esterase Negative (Negative); Nitrite Negative (Negative); Specific Gravity 1.025 (1.005-1.025); Urobilinogen 0.2 EU/dL (Up TO 0.2)
== END 2020-01-19 09:42 ==
PROVIDERS: PCP Nurse Practitioner; Visit Provider Internal Medicine Hematology & Oncology
DX: C15.5 Malignant neoplasm of lower third of esophagus (principal)
CPT/HCPCS: 81003

== ENCOUNTER 2020-03-20 01:43 | Outpatient (CLI) | payer OTHER, SELFPAY ==
--- NOTE | 2020-03-20 09:00 | DI.US_ITS ---
EXAM: US LOWER EXTREMITY VENOUS RT CLINICAL HISTORY: R/O DVT, s/p surgery,LOWER LEG EDEMA, R60.0. TECHNIQUE: Lower extremity venous ultrasound performed using grayscale, color-flow, and spectral Do ppler analysis. COMPARISON: No exams were available for comparison FINDINGS: The common femoral, femoral and popliteal veins demonstrate normal compressibility, augmentation, and color Doppler. The posterior tibial veins are patent. No saphenous vein thrombosis or other superfi cial venous thrombosis is seen. No hematoma or Sheldon's cyst is seen. IMPRESSION: Negative right lower extremity ultrasound. No evidence of DVT. DATA REPOSITORY:
== END 2020-03-20 02:03 ==
PROVIDERS: PCP Nurse Practitioner; Visit Provider Family Medicine
DX: R60.0 Localized edema (principal)
CPT/HCPCS: 93971

== ENCOUNTER 2020-04-09 02:28 | Outpatient (CLI) | payer OTHER, SELFPAY ==
[2020-04-09 12:38] LABS: Abs Immature Grans 0.01 10^3/uL (0.0-0.06); Absolute Basophil Count 0.04 10^3/uL (0.0-0.2); Absolute Eosinophil Count 0.29 10^3/uL (0.0-0.7); Absolute Lymphocyte Count 0.56 10^3/uL (1.2-3.4); Absolute Monocyte Count 0.44 10^3/uL (0.1-0.8); Absolute Neutrophil Count 2.09 10^3/uL (1.2-6.7); Basophils % 1.2; Eosinophils % 8.5; HGB 9.9 g/dL (13.5-17.5); Immature Grans % 0.3; Lymphocytes % 16.3; MCH 27.1 pg (27.0-33.0); MCHC 30.9 % (32.0-36.0); MCV 87.7 fL (80-95); MPV 9.4 fL (8.0-11.0); Monocytes % 12.8; Neutrophils % 60.9; Nucleated RBC 0 %; Platelet Count 202 10^3/uL (130-400); RBC 3.65 10^6/uL (4.36-5.78); RDW 17.1 % (11.8-14.1); RDW-SD 54.3 fL; WBC 3.43 10^3/uL (4.4-10.8)
[2020-04-09 13:36] LABS: Iron 149 ug/dL (65-175)
[2020-04-09 13:37] LABS: ALT 19 U/L (16-63); AST 21 U/L (15-37); Albumin 3.9 g/dL (3.4-5.0); Alkaline Phosphatase 105 U/L (46-116); Anion Gap 13.4 mmol/L (3-11); BUN 21 mg/dL (7-18); Bilirubin, Total 0.4 mg/dL (0.2-1.0); CO2 22.6 mmol/L (21.0-32.0); CREATININE 0.96 mg/dL (0.70-1.30); Calcium 9.1 mg/dL (8.5-10.1); Chloride 108 mmol/L (98-107); Glucose 93 mg/dL (74-106); Potassium 4.3 mmol/L (3.5-5.1); Sodium 144 mmol/L (136-145); Total Protein 7.1 g/dL (6.4-8.2)
[2020-04-09 13:49] LABS: Ferritin 17 ng/mL (26-388)
== END 2020-04-09 02:48 ==
PROVIDERS: Nurse Practitioner Adult Health; PCP Nurse Practitioner; Visit Provider Nurse Practitioner
DX: C15.5 Malignant neoplasm of lower third of esophagus (principal); D64.9 Anemia, unspecified
CPT/HCPCS: 36415; 80053; 85027; 82728; 83540; 85025

== ENCOUNTER 2020-06-12 01:25 | Outpatient (CLI) | payer OTHER, SELFPAY ==
[2020-06-12 16:15] LABS: Abs Immature Grans 0.02 10^3/uL (0.0-0.06); Absolute Basophil Count 0.04 10^3/uL (0.0-0.2); Absolute Eosinophil Count 0.18 10^3/uL (0.0-0.7); Absolute Lymphocyte Count 0.68 10^3/uL (1.2-3.4); Absolute Monocyte Count 0.46 10^3/uL (0.1-0.8); Absolute Neutrophil Count 2.46 10^3/uL (1.2-6.7); Eosinophils % 4.7; HGB 11.3 g/dL (13.5-17.5); Immature Grans % 0.5; Lymphocytes % 17.7; MCH 27.2 pg (27.0-33.0); MCHC 31.4 % (32.0-36.0); MCV 86.5 fL (80-95); MPV 9.8 fL (8.0-11.0); Neutrophils % 64.1; Nucleated RBC 0 %; Platelet Count 209 10^3/uL (130-400); RBC 4.16 10^6/uL (4.36-5.78); RDW 17.8 % (11.8-14.1); RDW-SD 57.1 fL; WBC 3.84 10^3/uL (4.4-10.8)
[2020-06-12 16:56] LABS: ALT 21 U/L (16-63); AST 24 U/L (15-37); Albumin 3.8 g/dL (3.4-5.0); Alkaline Phosphatase 111 U/L (46-116); Anion Gap 9.5 mmol/L (3-11); BUN 16 mg/dL (7-18); Bilirubin, Total 0.4 mg/dL (0.2-1.0); CO2 26.5 mmol/L (21.0-32.0); CREATININE 0.77 mg/dL (0.70-1.30); Calcium 9.1 mg/dL (8.5-10.1); Chloride 107 mmol/L (98-107); Glucose 84 mg/dL (74-106); Sodium 143 mmol/L (136-145)
== END 2020-06-12 01:45 ==
PROVIDERS: PCP Nurse Practitioner; Visit Provider Nurse Practitioner Adult Health
DX: C15.5 Malignant neoplasm of lower third of esophagus (principal)
CPT/HCPCS: 36415; 80053; 85025

== ENCOUNTER 2020-06-12 19:10 | Outpatient (REF) | payer OTHER, SELFPAY ==
[2020-06-15 16:01] LABS: Pancreatic Elastase, F 135 mcg/g
== END 2020-06-12 19:30 ==
LOC: LBN 19:10
PROVIDERS: PCP Nurse Practitioner; Visit Provider Surgery
DX: C15.5 Malignant neoplasm of lower third of esophagus (principal); R14.0 Abdominal distension (gaseous)
CPT/HCPCS: 82656

== ENCOUNTER 2020-06-26 01:34 | Outpatient (CLI) | payer OTHER, SELFPAY ==
--- NOTE | 2020-06-26 07:45 | DI.RAD_ITS ---
EXAM: XR SACRUM COCCYX CLINICAL HISTORY: Tailbone pain, r/o frx,COCCYDYNIA,M53.3. TECHNIQUE: 2D digital imaging was performed. COMPARISON: No exams were available for comparison FINDINGS: BONES: No acute fracture is present. No bony destructive lesion is seen. Degenerative changes are see n in the lower lumbar spine. JOINTS: No dislocation present. Sacroiliac joints show no acute abnormality. No ankylosis. SOFT TISSUE: Vascular calcifications are present. IMPRESSION: No acute fracture or dislocation. DATA REPOSITORY: RADIATION DOSE DELIVERED:
== END 2020-06-26 01:54 ==
PROVIDERS: PCP Nurse Practitioner; Visit Provider Family Medicine
DX: M53.3 Sacrococcygeal disorders, not elsewhere classified (principal)
CPT/HCPCS: 72220

== ENCOUNTER 2020-11-16 02:30 | Outpatient (CLI) | payer BC, SELFPAY ==
[2020-11-16 12:04] LABS: Source Nasal/Nares
[2020-11-16 20:44] LABS: COVID-19 PCR Negative (Negative)
== END 2020-11-16 02:31 | disposition home or self-care (01) ==
LOC: LBO 02:30
PROVIDERS: PCP Nurse Practitioner; Visit Provider Surgery
DX: Z20.822 Contact with and (suspected) exposure to COVID-19 (principal); Z01.818 Encounter for other preprocedural examination
CPT/HCPCS: 87635

== ENCOUNTER 2020-11-19 09:10 | Day surgery (SDC) | payer BC, SELFPAY ==
--- NOTE | 2020-11-19 06:33 | W.COLOREPORT ---
Date of service: 11/19/20 Time of Service: 10:59 Colonoscopy Report Date of procedure: 11/19/20 Pre-op diagnosis general: Hx of polyps Post-op diagnosis procedure note: same (polyps and diverticulosis) Procedure: Colonoscopy with polypectomy Surgeon: Leonela Lawson Anesthesia Type: General:No Airway (ASA 3/Drew Wallace CRNA) Estimated blood loss (mL): 3 Pathology: other (multiple small polyps) Complications: None Disposition: same day Indications: The patient is here for Colonoscopy pre-op. His last screening was in 2017: Sessile serrated x1. Tubular adenoma x2. Hyperplastic x2. He has no family history of colon cancer. He has not had any bowel habit changes. -Discussed colonoscopy bowel prep as well as the procedure. Discussed possible complications of the procedure to include bleeding, pain, perforation, missed small lesion/polyp, sore throat, aspiration and adverse reaction to the medications. Questions were answered to patient?s satisfaction. No guarantees were implied or given. Discussed that he may start drinking the Miralax drink earlier in the day, given his stomachs smaller capacity. Prep: Miralax/Dulcolax Procedure Start Time: :59 Procedure End Time: 11:35 Retraction Time: 26 minutes Findings: multiple small polyps mild diverticulosis of the sigmoid colon Procedure Description: After informed consent was obtained the patient was taken to the procedure room and placed in a left decubitous position. Monitors were applied and a time out was done. The patients name, date of , procedure, allergies to medications and metal in their body was reviewed. The patient was then sedated. Once sedated and comfortable a rectal exam was done. External exam was normal. Internal exam revealed a normal sphincter tone and no palpable masses. The prostate felt smooth. The scope was then introduced and retro-flexed. No internal hemorrhoids, polyps or masses were identified on retro-flexion. The scope was then advanced to the cecum without difficulty. The ileocecal vlave and appendiceal orifice were identified. The prep was good. The scope was then slowly retracted over 26 minutes back into the rectum. Polyps were removed with cold forceps in the ascending colon x3, sigmoid colon x1 and rectum x4. There was mild diverticulosis noted in the sigmoid colon. The scope was removed and the patient was woken up and taken back to Same day surgery in stable condition. The patient tolerated the procedure well and there were no immediate complications. Follow up: The patient should follow up in 3-5 years unless they develop changes in bowel habits or other new gastrointestinal complaints.
--- NOTE | 2020-11-19 06:34 | W.PM.DSUDISC ---
Discharge Plan Disposition Patient Disposition: HOME Condition: Good Discharge Details Reason For Visit: Colonoscopy Attending Provider: Leonela Lawson Primary Care Provider: Baylee Lozoya Home Meds and New Rx's Prescriptions: Continued hawthorn 500 mg capsule 565 mg PO BID RF: 0 losartan 100 mg tablet 100 mg PO DAILY Qty: 90 RF: 3 Hold Instructions: Home Medication placed on hold at Doctor's office elemental iron 45 mg tablet PO DAILY RF: 0 ferrous sulfate [Iron (ferrous sulfate)] 325 mg (65 mg iron) tablet 325 mg PO DAILY RF: 0 Hold Instructions: Home Medication placed on hold at Doctor's office multivitamin Tablet 1 tab PO DAILY RF: 0 Creon 36,000-114,000- 180,000 unit capsule,delayed release(DR/EC) 1 cap PO TID RF: 0 melatonin 5 MG tablet 5 mg PO HS RF: 0 nystatin 15 GM cream 1 gm Topical TID Qty: 15 RF: 3 calcipotriene [Dovonex] 0.005 % cream 1 applic TP BID PRNRF: 0 ibuprofen 800 mg tablet 800 mg PO TID PRN (Reason: fever or pain) Qty: 270 RF: 3 Hold Instructions: Home Medication placed on hold at Doctor's office omeprazole 20 mg capsule,delayed release(DR/EC) 20 mg PO DAILY RF: 0 acetaminophen 500 mg capsule 1,000 mg PO Q6H PRNRF: 0 gabapentin 300 mg capsule 300 mg PO TID RF: 0 ibuprofen 100 mg/5 mL suspension 600 mg PO Q6H RF: 0 aspirin [Aspir-81] 81 MG tablet,delayed release (DR/EC) 81 mg PO DAILY RF: 0 magnesium oxide 400 MG tablet 400 mg PO DAILY Qty: 100 RF: 0 Discontinued polyethylene glycol 3350 17 gram/dose powder 238 g PO ONCE Qty: 238 RF: 0 bisacodyl [Dulcolax (bisacodyl)] 5 mg tablet,delayed release (DR/EC) 5 mg PO ONCE Qty: 4 RF: 0 Discharge Instructions Instructions: Diverticulosis (DC), Colorectal Polyps (DC) Additional Instructions: Findings: multiple small polyps diverticulosis Follow up: 3-5 years Please call if you develop: fevers >101.5 Nausea or Vomiting Abdominal pain that is not transient DAY SURGERY UNIT POST ENDOSCOPY INSTRUCTIONS 1. Because there will be medication in your system for the next 24 hours, you may feel a little sleepy. Your coordination will be affected. Therefore: a. Do not drive or operate dangerous equipment for 24 hours. b. Do not drink alcohol beverages for 24 hours (not even beer). c. Plan to go home and rest for the day. 2. Generally there are no restrictions on your activity after a day or so has gone by, but you may feel a bit fatigued for a few days. 3 After you arrive home you may have a light meal and return to a normal diet as you can tolerate it without feeling sick to your stomach. 4. After surgery, you may feel pain or discomfort. This should be only transient, but if it persists please contact your doctor. 5. If there are any questions regarding the findings of your procedure, please feel free to contact your doctor. 6. If you are unable to contact your doctor with a problem, contact the hospital at [phone]. 7. Continue all your regular medications unless directed otherwise. I understand the above instructions and have no questions. Signature of Patient or Responsible Adult Escort Date/Time Name of Responsible Adult Escort Signature of Nurse Date/Time Activity:: Activity as Tolerated Diet:: High Fiber Diet Discharge Orders Discharge Orders: Discharge Order (Routine); Ordered 11/19/20 Ordered By: Leonela Lawson
[2020-11-19 09:15] VITALS: BP 137/90; PULSE 77; RESP 18; TEMP 36.5; O2SAT 98
[2020-11-19] MEDS: Lactated Ringers 1,000 ML 80 ML IV (09:46)
--- NOTE | 2020-11-19 11:12 | BOWEL_PTH ---
PATIENT: Ramos Lira LOC: [facility] U#:[id number] AGE/SX: 60/M ROOM: RE11/19/[address]: Leonela Lawson MD : 1960 BED: DIS: 11/19/2020 SPEC #: [id number] RECD: 11/19/20 13:02 STATUS: MARYAN RE #: [id number] ANGELA: 11/19/20 11:[address]: Leonela Lawson DEPT: Surgical Specimen RECD BY: Aliya Cunningham ENTERED: 11/19/20 13:03 SP TYPE: Bowel OTHR DR: Baylee Lozoya APRN Tissues: 1 - BIOPSY BOWEL 2 - BIOPSY BOWEL 3 - BIOPSY BOWEL Procedures: GROSS AND MICRO LEVEL 4 Comments: [id number]
[2020-11-19 12:12] VITALS: BP 130/90; PULSE 69; RESP 16; TEMP 36; O2SAT 99
== END 2020-11-19 12:30 | disposition home or self-care (01) ==
LOC: SUR 09:11
PROVIDERS: PCP Nurse Practitioner; Visit Provider Surgery
PROC: 0DJD8ZZ Inspection of Lower Intestinal Tract, Via Natural or Artificial Opening Endoscopic (ICD-10-PCS; CPT 45378; principal; 2020-11-19 10:45)
DX: Z12.11 Encounter for screening for malignant neoplasm of colon (principal); Z86.010 Personal history of colon polyps; K57.30 Diverticulosis of large intestine without perforation or abscess without bleeding; D12.2 Benign neoplasm of ascending colon; D12.5 Benign neoplasm of sigmoid colon; I10 Essential (primary) hypertension
CPT/HCPCS: 45380; 88305; J2001

== ENCOUNTER 2021-05-23 16:15 | Outpatient (CLI) | payer BC, SELFPAY ==
--- NOTE | 2021-05-23 | DI.RAD_ITS ---
Exam(s) XR SACRUM COCCYX EXAM: XR SACRUM COCCYX CLINICAL HISTORY: COCCYDYNIA,M53.3. TECHNIQUE: 2D digital imaging was performed. COMPARISON: CR XR SACRUM COCCYX from 06/26/2020 FINDINGS: BONES: No acute fracture is present. No bony destructive lesion is seen. JOINTS: No dislocation present. There are mild degenerative changes seen at the sacroiliac joints. N o ankylosis is appreciated. There are degenerative changes seen in the visualized lumbosacral spine. SOFT TISSUE: Atherosclerosis. IMPRESSION: No acute abnormality. DATA REPOSITORY: RADIATION DOSE DELIVERED:
== END 2021-05-23 16:35 ==
PROVIDERS: PCP Nurse Practitioner; Visit Provider Nurse Practitioner
DX: M53.3 Sacrococcygeal disorders, not elsewhere classified (principal)
CPT/HCPCS: 72220

== ENCOUNTER 2021-07-11 02:10 | Outpatient (CLI) | payer BC, SELFPAY ==
[2021-07-11 09:41] LABS: HCT 39.5 % (40.0-50.0); HGB 12.8 g/dL (13.5-17.5); MCH 30.4 pg (27.0-33.0); MCHC 32.4 % (32.0-36.0); MCV 93.8 fL (80-95); MPV 8.9 fL (8.0-11.0); Platelet Count 191 10^3/uL (130-400); RBC 4.21 10^6/uL (4.36-5.78); RDW 14.3 % (11.8-14.1); RDW-SD 49.1 fL; WBC 4.37 10^3/uL (4.4-10.8)
[2021-07-11 10:11] LABS: Hemoglobin A1C 5.8 % (<5.7)
[2021-07-11 10:21] LABS: ALT 29 U/L (16-63); AST 27 U/L (15-37); Albumin 3.5 g/dL (3.4-5.0); Alkaline Phosphatase 125 U/L (46-116); Anion Gap 5.4 mmol/L (3-11); BUN 22 mg/dL (7-18); Bilirubin, Total 0.4 mg/dL (0.2-1.0); CO2 31.6 mmol/L (21.0-32.0); Calcium 9.4 mg/dL (8.5-10.1); Calculated LDL 108 mg/dL (<100); Chloride 105 mmol/L (98-107); Cholesterol 191 mg/dL (<200); Ferritin 178 ng/mL (26-388); Glucose 95 mg/dL (74-106); HDL Cholesterol 69 mg/dL (40-60); Potassium 4.4 mmol/L (3.5-5.1); Sodium 142 mmol/L (136-145); Triglyceride 70 mg/dL (<150)
[2021-07-11 17:19] LABS: Abs Immature Grans 0.02 10^3/uL (0.0-0.06); Absolute Basophil Count 0.07 10^3/uL (0.0-0.2); Absolute Eosinophil Count 0.14 10^3/uL (0.0-0.7); Absolute Lymphocyte Count 0.88 10^3/uL (1.2-3.4); Absolute Monocyte Count 0.68 10^3/uL (0.1-0.8); Absolute Neutrophil Count 2.54 10^3/uL (1.2-6.7); Basophils % 1.6; Eosinophils % 3.2; Immature Grans % 0.5; Lymphocytes % 20.3; Monocytes % 15.7; Neutrophils % 58.7
== END 2021-07-11 02:11 | disposition home or self-care (01) ==
LOC: LBO 02:10
PROVIDERS: PCP Nurse Practitioner; Visit Provider Internal Medicine Hematology & Oncology
DX: D50.9 Iron deficiency anemia, unspecified (principal); E11.9 Type 2 diabetes mellitus without complications; I10 Essential (primary) hypertension; E78.5 Hyperlipidemia, unspecified
CPT/HCPCS: 36415; 80053; 80061; 85027; 82728; 83036; 85007

== ENCOUNTER 2021-07-23 01:44 | Outpatient (CLI) | payer BC, SELFPAY ==
--- NOTE | 2021-07-23 08:15 | DI.MRI_ITS ---
Exam(s) MR BRAIN PITUITARY WO/W EXAM: MR BRAIN PITUITARY WO/W CLINICAL HISTORY: ? central process,ESOPHAGEAL CA,PRESSURE IN HEAD,R51.9 TECHNIQUE: Multiplanar multisequence MRI of the brain and pituitary gland was performed. CONTRAST MATERIAL: IV Contrast: 16 mL of Dotarem contrast administered. Priors: No exams were available for comparison Findings: VENTRICLES AND EXTRA AXIAL SPACES: Normal in size and morphology for the patient's age. HEMORRHAGE: None. CEREBRAL PARENCHYMA: No focus of restricted diffusion to suggest acute infarct. There are several are as of hyperintense signal seen in the white matter on the T2 weighted images which may represent smal l vessel ischemic disease. MIDLINE SHIFT: None. BRAINSTEM/CEREBELLUM: Normal. CALVARIUM: Normal. ENHANCEMENT: There is a 5 mm enhancing lesion in the right occipital lobe. There is mild surrounding edema. Given the patient's history, a metastatic focus should be considered. VISUALIZED PARANASAL SINUSES/MASTOIDS: Clear. OTHER FINDINGS: None. PITUITARY: Pituitary stalk is midline. The gland demonstrates homogenous signal intensity with homogeneous enhan cement. No evidence of macroadenoma or microadenoma. The optic chiasm is unremarkable. The cavernous portions of both carotid arteries are unremarkable. Impression: 1. Unremarkable pituitary gland. No evidence of a pituitary or suprasellar mass. 2. Solitary 5 mm enhancing lesion in the right occipital lobe. A solitary metastatic focus should be considered. Primary neoplasm, infection or inflammatory process cannot be excluded. 3. No acute territorial infarct. 4. Areas of hyperintense signal in the white matter on the T2 weighted images which may represent sma ll vessel ischemic disease. Other demyelinating processes cannot be excluded. DATA REPOSITORY:
[2021-07-23] MEDS: Normal Saline Flush 10 ML SYR IVP (12:20)
[2021-07-23] MEDS: Gadoterate meglumine 20 ML VIAL 16 ML IVP (12:20)
== END 2021-07-23 02:04 ==
PROVIDERS: PCP Nurse Practitioner; Visit Provider Otolaryngology
DX: C15.9 Malignant neoplasm of esophagus, unspecified (principal); R51.9 Headache, unspecified; G93.9 Disorder of brain, unspecified
CPT/HCPCS: 70553

== ENCOUNTER 2021-09-10 00:56 | Outpatient (CLI) | payer BC, SELFPAY ==
--- NOTE | 2021-09-10 | DI.MRI_ITS ---
Exam(s) MR ORBIT FACIAL NECK WO/W EXAM: MR ORBIT FACIAL NECK WO/W CLINICAL HISTORY: BRAIN LESION,NEW ONSET HEARING LOSS,? METS OF FORAMEN MAGNUM TECHNIQUE: Multiplanar multisequence MRI was performed. Both pre and post contrast infused sequence s were performed. Images are submitted for interpretation. Field of view of this study is of the po sterior fossa and down to upper C6 level. CONTRAST MATERIAL: IV Contrast: 17 mL of Magnevist contrast administered. COMPARISON: MR MR BRAIN PITUITARY WO/W from 07/23/2021 FINDINGS: On the uppermost aspect of the coronal images there is again noted the previously described enhancing lesion in the right occipito-parietal region which measures approximately 6 x 7 millimeters and exh ibits some surrounding edema on T2 images. The amount of edema in the surrounding white matter at th is level has increased although there does not appear to be prominent mass effect upon the adjacent a trium of the right lateral ventricle. There are no new enhancing lesions in the cerebellar hemispheres nor within the gracie and midbrain and visualized lower aspect of the thalami. There are no masses in the cerebellopontine angles. No evidence of intra canalicular mass within the IAC's. There is no cerebellar tonsillar ectopia. No abnormal foci of signal abnormality in the cervical spi nal cord down to and including the C6 level. No syrinx and the caliber of the cervical cord is withi n normal limits. There is mild annular bulging at C4-5 level. No evidence of spinal cord mass nor epidural mass nor abnormal fluid collection. No evidence of mass in the region the foramen magnum. No lesions in the visualized cervical vertebra down to and includ ing C 6. Expected flow voids within both vertebral arteries at the skull base as well as the basilar artery noted. Visualize 4th ventricle appears unremarkable. No enlargement of the 3rd ventricle. [place] is patent. Pituitary fossa appears unremarkable. No evidence of pituitary gland nor infundibular mass. No sign ificant findings in the cavernous sinuses nor within the sphenoid sinus. No abnormal intraosseous si gnal in the clivus/basiocciput. Visualized orbits and maxillary sinuses appear unremarkable. Nasopharynx and oropharynx appear unremarkable and there is no obvious abnormality in the hypopharynx . Epiglottis appears unremarkable. Aryepiglottic folds appear unremarkable. IMPRESSION: 1. No evidence of mass at the level the foramen magnum and cervical spinal canal down to and includin g C6 level. No signal abnormality nor contour abnormality in the cervical spinal cord. 2. No masses in the cerebellopontine angles and no evidence of intra canalicular mass. 3. The amount of white matter edema surrounding the enhancing lesion in the right occipital parietal region has slightly increased when compared to the prior MRI study of 07/23/2021. This mass is suspi cious for metastatic lesion. There are no new enhancing lesions within the field of view of this amira dy (which is described above). DATA REPOSITORY:
--- NOTE | 2021-09-10 | DI.MRI_ITS ---
Exam(s) MR BRAIN WO/W EXAM: MR BRAIN WO/W CLINICAL HISTORY: ESOPHAGEAL CA,C15.5,F/U MRI 07/23/21,LESION. TECHNIQUE: Multiplanar multisequence MRI was performed. COMPARISON: MR MR BRAIN PITUITARY WO/W from 07/23/2021 FINDINGS: MR examination of brain was performed according to the usual protocol with additional post contrast a xial and coronal T1 weighted imaging in the and multi planer MP rage imaging. A previously described small rounded enhance sing lesion in the right occipital lobe seen on prior MR of July 23, 2021 is again seen. This is increased in size from 5 millimeters in greatest diamet er to 8-9 millimeters in greatest diameter. There is increasing [place] lesional edema, findings are hi ghly suggestive of intracranial metastatic lesion. No other enhancing lesion identified in the brain. No meningeal enhancement. Note is again made of periventricular signal changes consistent with microvascular ischemic disease, and small bilateral lacunar infarcts, no change from prior study. The orbital and temporal bone structures appear intact. There is normal flow void in the [place] vasculature. Pituitary is unremarkable in appearance. Diffusion-weighted imaging shows no evidence of intracranial infarction. Susceptibility weighted michelle ging shows no evidence of hemorrhage. IMPRESSION: Interval increase in size right occipital enhancing lesion since prior scan of July 23, 2021, the lesion has increased in size from 5 millimeters to between 8 and 9 millimeters in diameter. There i s increased perilesional edema. Findings are consistent with metastatic lesion. No new lesion identified. DATA REPOSITORY:
[2021-09-10 13:09] LABS: CREATININE 0.9 mg/dL (0.70-1.30)
[2021-09-10] MEDS: Normal Saline Flush 10 ML SYR IVP (13:35)
[2021-09-10] MEDS: Gadoterate meglumine 20 ML VIAL 17 ML IVP (13:36)
== END 2021-09-10 01:16 ==
PROVIDERS: PCP Nurse Practitioner; Visit Provider Radiology Radiation Oncology
DX: C15.5 Malignant neoplasm of lower third of esophagus (principal); R90.89 Other abnormal findings on diagnostic imaging of central nervous system; H91.93 Unspecified hearing loss, bilateral; C79.31 Secondary malignant neoplasm of brain
CPT/HCPCS: 70553; 70543; 82565

== ENCOUNTER 2021-09-27 13:41 | Outpatient (CLI) | payer BC, SELFPAY ==
--- NOTE | 2021-09-26 | DI.MRI_ITS ---
Exam(s) MR THORACIC SPINE WO/W EXAM: MR THORACIC SPINE WO/W CLINICAL HISTORY: ESOPHAGEAL CA,C15.5,EVALUATE METASTATIC DISEASE. TECHNIQUE: Multiplanar multisequence MRI of the Thoracic spine was performed. CONTRAST MATERIAL: IV Contrast: 17 mL of Dotarem contrast administered. COMPARISON: CR XR CHEST 2V PA LATERAL from 01/18/2020 FINDINGS: Bones: The vertebral body heights are well maintained. Alignment is satisfactory. The signal characte ristics are unremarkable. Cord: The thoracic cord is normal size and signal intensity. No intrinsic cord lesion is present. Discs: No disc herniation is seen. Mild degenerative changes are seen in the thoracic spine. Soft tissues: There are bilateral simple renal cysts present. There is no evidence of suspicious enhancement. IMPRESSION: No abnormal signal or enhancing lesions are seen in the thoracic spine or spinal cord to suggest meta static disease. DATA REPOSITORY:
--- NOTE | 2021-09-26 | DI.MRI_ITS ---
Exam(s) MR CERVICAL SPINE WO/W EXAM: MR CERVICAL SPINE WO/W CLINICAL HISTORY: ESOPHAGEAL CA,C15.5,EVALUATE METASTATIC DISEASE TECHNIQUE: Multiplanar multisequence MRI of the cervical spine was performed. CONTRAST MATERIAL: IV Contrast: 17 ML of Dotarem contrast administered. COMPARISON: MR MR ORBIT FACIAL NECK WO/W from 09/10/2021 FINDINGS: BONES: Vertebral body heights are maintained. Intervertebral disc spaces are normal. Alignment is nor mal. Bone marrow signal intensity is within normal limits. CERVICAL CORD: Craniovertebral junction is unremarkable. The cervical cord is normal size and signal intensity. No lesion is present. SOFT TISSUES: Unremarkable. ENHANCEMENT: No suspicious enhancement identified. C2-3: No disc herniation or bulge is identified. No significant central spinal canal or neural forami nal stenosis. C3-4: No disc herniation or bulge is identified. No significant central spinal canal or neural forami nal stenosis C4-5: There is mild prominence of the osteophyte disc complex. No significant central spinal canal s tenosis is seen. There is minimal narrowing of the neural foramen bilaterally. C5-6: No disc herniation or bulge is identified. No significant central spinal canal or neural forami nal stenosis C6-7: No disc herniation or bulge is identified. There is mild prominence of the right uncovertebral joint causing mild narrowing of the right neural foramen. No central spinal canal or left neural for aminal stenosis. C7-T1: No disc herniation or bulge is identified. No significant central spinal canal or neural anayeli inal stenosis IMPRESSION: 1. No abnormal signal or enhancement in the cervical spine or the spinal cord to suggest metastatic d isease. 2. Degenerative changes in the cervical spine as described above. DATA REPOSITORY:
--- NOTE | 2021-09-26 | DI.MRI_ITS ---
Exam(s) MR LUMBAR SPINE WO/W EXAM: MR LUMBAR SPINE WO/W CLINICAL HISTORY: ESOPHAGEAL CA,C15.5,EVALUATE METASTATIC DISEASE. TECHNIQUE: Multiplanar multisequence MRI of the Lumbar Spine was performed. CONTRAST MATERIAL: IV Contrast: 17 mL of Dotarem contrast administered. COMPARISON: No exams were available for comparison FINDINGS: Bones: The last intervertebral disc space is designated the L5/S1 level for the numbering purpose of this examination. The vertebral body heights are well maintained. Alignment is satisfactory. The sig nal characteristics are unremarkable. Cord: The conus tip ends at the L1 level. It is of normal size and signal intensity. T12-L1: No disc herniations or bulges are present. No central spinal canal or neural foraminal stenos is. L1-2: No disc herniations or bulges are present. No central spinal canal or neural foraminal stenosis . L2-3: No disc herniations or bulges are present. No central spinal canal or neural foraminal stenosis . L3-4: No disc herniations or bulges are present. No central spinal canal or neural foraminal stenosis . L4-5: There is a left paracentral disc herniation which may compress the left L5 nerve roots. There are degenerative changes of the facets. These all contribute to cause mild narrowing of the central spinal canal. There is mild bilateral neural foraminal stenosis. L5-S1: There is a mild diffuse disc bulge. No central spinal canal stenosis is seen. There is a mil d narrowing of the neural foramen bilaterally. Soft tissues: The visualized SI joints and sacrum are well maintained. The paraspinal soft tissues ar e unremarkable. There are bilateral renal cysts. There is no evidence of suspicious enhancement in the lumbar spine. IMPRESSION: 1. No abnormal signal or enhancement is seen in the lumbar spine to suggest metastatic disease. 2. Disc herniation at L4-L5 eccentric to the left which appears to compress the left L5 nerve roots. 3. Multilevel degenerative changes in the lumbar spine as described above. DATA REPOSITORY:
[2021-09-27] MEDS: Normal Saline Flush 10 ML SYR IVP (12:53)
[2021-09-27] MEDS: Gadoterate meglumine 20 ML VIAL 17 ML IVP (12:54)
== END 2021-09-27 14:01 ==
PROVIDERS: PCP Nurse Practitioner; Visit Provider Radiology Radiation Oncology
DX: C15.5 Malignant neoplasm of lower third of esophagus (principal); M47.814 Spondylosis without myelopathy or radiculopathy, thoracic region; M51.26 Other intervertebral disc displacement, lumbar region; M47.816 Spondylosis without myelopathy or radiculopathy, lumbar region; M47.812 Spondylosis without myelopathy or radiculopathy, cervical region
CPT/HCPCS: 72158; 72156; 72157

== ENCOUNTER 2021-10-18 02:27 | Outpatient (CLI) | payer BC, SELFPAY ==
--- NOTE | 2021-10-18 | DI.MRI_ITS ---
Exam(s) MR BRAIN WO/W EXAM: MR BRAIN WO/W CLINICAL HISTORY: SECONDARY NEOPLASM OF BRAIN,,C79.31,FOR RADIOSURGERY PLANNING TECHNIQUE: Multiplanar multisequence MRI of the brain was performed. Both noninfused and contrast i nfused sequences were performed. IV Contrast injected was 17 cc Dotarem. COMPARISON: MR MR BRAIN WO/W from 09/10/2021 FINDINGS: CEREBRAL PARENCHYMA: The size of the previously described enhancing lesion in the right occipital lob e presently measures 10 millimeters and there is further increase in amount none perilesional edema a round this metastatic lesion. There are no additional ring-enhancing lesions in the brain no abnormal meningeal enhancement, focal nor diffuse. The previously described bilateral lacunar infarcts are again noted. No evidence of o bvious new acute ischemic event. There is no significant focal signal abnormality in the cerebellar hemispheres nor within the gracie, m idbrain, and thalami. PITUITARY GLAND: No mass nor parasellar abnormality. No obvious abnormality in the cavernous sinuses. PARANASAL SINUSES: Finding in the medial wall of the left maxillary sinus noted which is probably a p ost inflammatory retention cyst. Measures slightly over 1 cm. ORBITS: No obvious new significant abnormal findings. IMPRESSION: 1. Metastatic lesion again noted in the right occipital parietal region has slightly increased in siz e as has the amount of surrounding edema when compared to the prior 09/10/2021 study. There are no n ew metastatic lesions seen in the brain. 2. Otherwise stable chronic ischemic sequelae bilateral lacunar infarcts again noted, also unchanged DATA REPOSITORY:
[2021-10-18] MEDS: Gadoterate meglumine 20 ML VIAL 17 ML IVP (11:01)
[2021-10-18] MEDS: Normal Saline Flush 10 ML SYR IVP (11:01)
== END 2021-10-18 02:47 ==
PROVIDERS: PCP Nurse Practitioner; Visit Provider Radiology Radiation Oncology
DX: Z01.812 Encounter for preprocedural laboratory examination (principal); C79.31 Secondary malignant neoplasm of brain; R60.0 Localized edema
CPT/HCPCS: 70553

== ENCOUNTER 2022-02-06 14:32 | Outpatient (REF) | payer BC, SELFPAY ==
[2022-02-06 18:57] LABS: COMMENT (LAB VIEW ONLY) 323.37 mg/dL; Microalb ug/mg Crea 6.6 ug/mg Cr
== END 2022-02-06 14:33 | disposition home or self-care (01) ==
LOC: LBN 14:32
PROVIDERS: PCP Nurse Practitioner; Visit Provider Nurse Practitioner
DX: E11.9 Type 2 diabetes mellitus without complications (principal)
CPT/HCPCS: 82043; 82570

== ENCOUNTER → 2022-02-18 02:04 | Outpatient (CLI) | payer BC, SELFPAY ==
[2022-02-18] MEDS: Gadoterate meglumine 20 ML SYRINGE IVP (13:09)
[2022-02-18] MEDS: Normal Saline Flush 10 ML SYR IVP (13:09)
--- NOTE | 2022-02-18 13:30 | DI.MRI_ITS ---
Exam(s) MR BRAIN WO/W EXAM: MR BRAIN WO/W CLINICAL HISTORY: SECONDARY NEOPLASM OF BRAIN,C79.31,S/P RADIATION FOR LT PARIETAL METS TECHNIQUE: Multiplanar multisequence MRI of the brain was performed. CONTRAST MATERIAL: IV Contrast: 18 mL of Dotarem contrast administered. COMPARISON: MR MR BRAIN WO/W from 10/18/2021 FINDINGS: VENTRICLES AND EXTRA AXIAL SPACES: Normal in size and morphology for the patient's age. HEMORRHAGE: None. CEREBRAL PARENCHYMA: No focus of restricted diffusion to suggest acute infarct. There is a been a dec rease in size and edema of the lesion in the right parietal occipital region. It measures 3 mm garrett red with 9.8 on the prior examination. No new enhancing lesions are seen. There are areas of hyperi ntense signal seen in the white matter on the T2 and FLAIR images most consistent with small vessel i schemic disease. There are old lacunar infarcts again seen. MIDLINE SHIFT: None. BRAINSTEM/CEREBELLUM: Normal. CALVARIUM: Normal. ENHANCEMENT: Interval decrease in size of the right parieto-occipital metastatic focus as described a gabi. VISUALIZED PARANASAL SINUSES/MASTOIDS: Clear. [place]: Normal flow void. PITUITARY GLAND: Unremarkable. OTHER FINDINGS: IMPRESSION: 1. Interval decrease in size of the right parietal clip row metastatic focus. 2. No new intraparenchymal mass or enhancing lesion. DATA REPOSITORY:
== END ==
PROVIDERS: PCP Nurse Practitioner; Visit Provider Radiology Radiation Oncology
DX: C79.31 Secondary malignant neoplasm of brain (principal); Z01.812 Encounter for preprocedural laboratory examination; Z92.3 Personal history of irradiation; I67.82 Cerebral ischemia
CPT/HCPCS: 70553; 82565

== ENCOUNTER 2022-02-26 15:12 | Emergency (ER) | payer BC, SELFPAY ==
[2022-02-26] VITALS (51 sets, daily range): BP systolic 149–162; BP diastolic 87–89; PULSE 63–70; RESP 12–22; TEMP 36.7; O2SAT 98–100
--- NOTE | 2022-02-26 15:45 | DI.CT_ITS ---
Exam(s) CT HEAD WO EXAM: CT HEAD WO CLINICAL HISTORY: headache, history of brain mets. TECHNIQUE: Imaging Protocol: Axial computed tomography images with coronal and sagittal reformatted images were created and reviewed COMPARISON: MR MR BRAIN WO/W from 10/18/2021 MR MR BRAIN WO/W from 02/18/2022 FINDINGS: Ventricles and Extra axial spaces: Normal in size and morphology for the patient's age. Hemorrhage: None. Cerebral parenchyma: Mild atrophy. Old bilateral basal ganglia lacunar infarcts. Mild white matter changes consistent with small vessel disease. No visible mass or edema. Midline shift: None. Brainstem/Cerebellum: Normal. Calvarium: Normal. Visualized Paranasal sinuses/Mastoids: Clear. IMPRESSION: No acute abnormality. Results of this exam have been verbally communicated with the emergency department provider. RADIATION DOSE DELIVERED: 833.87mGy.cm Total DLP 833.87mGy.cm Total DLP DATA REPOSITORY: All CT scans at this facility are submitted to the National Radiology Data Registry (NRDR) Dose Index Registry (DIR) with the [employer] ([employer]). RADIATION OPTIMIZATION: All CT scans at this facility use at least one of these dose optimization te chniques: automated exposure control; mA and/or kV adjustment per patient size (includes targeted exa ms where dose is matched to clinical indication); or iterative reconstruction.
--- NOTE | 2022-02-26 15:50 | W.ED.GENAD ---
Discharge Plan Disposition Patient Disposition: HOME Condition: Stable Discharge Details Clinical Impression: Headache Primary Care Provider: Baylee Lozoya ED Provider: Livan Soriano Home Meds and New Rx's Prescriptions: New ondansetron 4 mg tablet,disintegrating 4 mg PO Q8H PRN (Reason: nausea and vomiting) Qty: 30 0RF Continued hawthorn 500 mg capsule 565 mg PO BID ferrous sulfate [Iron (ferrous sulfate)] 325 mg (65 mg iron) tablet 325 mg PO DAILY Hold Instructions: Home Medication placed on hold at Doctor's office multivitamin Tablet 1 tab PO DAILY Rx Instructions: 03/07/20 [facility] [place] Thoracic Surgery. Kina Kay losartan 100 mg tablet 100 mg PO DAILY Qty: 90 3RF Hold Instructions: Home Medication placed on hold at Doctor's office buspirone 10 mg tablet 10 mg PO BID Qty: 180 3RF melatonin 5 MG tablet 5 mg PO HS nystatin 15 GM cream 1 gm Topical TID Qty: 15 Rx Instructions: Apply TID to afftected area, groin rash. calcipotriene [Dovonex] 0.005 % cream 1 applic TP BID PRN Label Comments: 12/20/18 D[facility] Hammer twice daily to psoriasis and groin area acetaminophen 500 mg capsule 1,000 mg PO Q6H PRN Rx Instructions: 11/21/19- [place] take 1000 mg by mouth every 6 hrs as needed for pain (varies daily at least two to three doses daily) ibuprofen 800 mg tablet 800 mg PO TID PRN (Reason: fever or pain) Qty: 270 3RF Hold Instructions: Home Medication placed on hold at Doctor's office omeprazole 20 mg capsule,delayed release(DR/EC) 20 mg PO DAILY Rx Instructions: 08/15/21[place] [facility] [place]; continue daily 30 min-1 hr before breakfast. Pt should try to wean or minimizing dose,and stopping completely,based on pt preference to see if sx's can improve over time. Lee Reyes APRN aspirin [Aspir-81] 81 MG tablet,delayed release (DR/EC) 81 mg PO DAILY magnesium oxide 400 MG tablet 400 mg PO DAILY Qty: 100 0RF Discharge Instructions Additional Instructions: Your blood work and cat scan did not show any concerning findings at this time you can take tylenol 1000mg and ibuprofen 600mg as needed for pain every 6 hours. Do not exceed 3000mg of tylenol in a 24 hour period. 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 He has finished radiation therapy and had f/u MRI end of January and showed decrease in size of the known parietal metastase. He states he had a moderate headache with nausea 2 weeks or so ago that resolved during a day, no vomit or fevers. He saw oncology yesterday and no further treatment recommended for the known metastase unless it increases on future imaging per the patient. He started to have a slowly worsening headache that started last night and continued today with nausea. NO fevers, no neck stiffness, no vision changes, no weakness, no numbness, no chest pain or dyspnea. He is caox4 with clear speech. He has no focal motor or sensation deficits, CN II-XII intact, perrl. This could be a general headache vs migraine but given his history will obtain CT to evaluate for increase in size of his metastase vs hemorrhage. His headache is not thunderclap on description so feel subarachnoid hemorrhage less likely and no findings on history or exam to suggest route delivery clerk infection. Labs and imaging unremarkable and metastase not visualize don the CT. He feels improved, still no deficits on exam and no meningismus. Discussed with pt and offered to do an LP but given clinical concern for SAH and route delivery clerk infection is low he has declined to have the procedure given potential risks. He is stable for d/c and will f/u with his pcp and return precautions given Differential Diagnosis Differential Diagnosis: metastases, migraine, hemorrhage Medical Records Medical records reviewed: Yes I reviewed the patient's medical records. Imaging Data Radiologic Study: Attestation: I personally reviewed and interpreted this imaging study as follows: Imaging: CT Scan Radiologist's impression: no acute findings HPI General Mode of arrival: ambulatory. Date/Time Provider Initiated Documentation: 02/26/22 15:36. Limitations to Documentation: no limitations. Information obtained by: patient. History of Present Illness 61 year old M presents to the emergency department with the chief complaint of headache, described as moderate, with intensity rated at 6. Quality is described as aching, and is localized to the head. Patient reports no radiation. Patient started experiencing this day(s) (1) and it has been constant. No relieving factors improve symptom(s), No exacerbating factors reported . Patient notes other (nausea). Patient did receive the following treatments prior to arrival, none Related Data Home Medications Medication Instructions Recorded Confirmed aspirin 81 mg tablet,delayed 81 mg PO DAILY 02/14/14 02/26/22 release (Aspir-) melatonin 5 mg tablet 5 mg PO HS 09/15/16 02/26/22 magnesium oxide 400 mg (241.3 mg 400 mg PO DAILY #100 tabs 12/21/16 02/26/22 magnesium) tablet nystatin 100,000 unit/gram topical 1 gm topical TID #15 grams 02/12/17 02/06/22 cream hawthorn 500 mg capsule 565 mg PO BID 06/30/18 02/26/22 calcipotriene 0.005 % topical 1 applic topical BID PRN 12/21/18 02/26/22 cream (Dovonex) acetaminophen 500 mg capsule 1,000 mg PO Q6H PRN 11/24/19 02/26/22 ferrous sulfate 325 mg (65 mg 325 mg PO DAILY 01/13/20 02/26/22 iron) tablet (Iron (ferrous sulfate)) multivitamin 1 tab PO DAILY 03/08/20 02/26/22 losartan 100 mg tablet 100 mg PO DAILY #90 tab-caps 01/15/21 02/26/22 ibuprofen 800 mg tablet 800 mg PO TID PRN fever or pain 04/05/21 02/26/22 #270 tab-caps omeprazole 20 mg capsule,delayed 20 mg PO DAILY 08/21/21 02/26/22 release buspirone 10 mg tablet 10 mg PO BID #180 tabs 02/06/22 02/26/22 ondansetron 4 mg disintegrating 4 mg PO Q8H PRN nausea and 02/26/22 tablet vomiting #30 tabs Previous Rx's Medication Instructions Recorded magnesium oxide 400 mg (241.3 mg 400 mg PO DAILY #100 tabs 12/21/16 magnesium) tablet losartan 100 mg tablet 100 mg PO DAILY #90 tab-caps 01/15/21 ibuprofen 800 mg tablet 800 mg PO TID PRN fever or pain 04/05/21 #270 tab-caps buspirone 10 mg tablet 10 mg PO BID #180 tabs 02/06/22 ondansetron 4 mg disintegrating 4 mg PO Q8H PRN nausea and 02/26/22 tablet vomiting #30 tabs Allergies Allergy/AdvReac Type Severity Reaction Status Date / Time lisinopril AdvReac Mild Cough Verified 02/26/22 15:41 Penicillins AdvReac Mild belly ache Verified 02/26/22 15:41 General Stated Complaint: Nausea/Vomit/Diar MAXWELL: 3 Review of Systems All systems reviewed & are unremarkable except as noted in HPI and below Constitutional Constitutional: Denies chills, Denies fever(s) and Denies weakness Eyes Eyes: Denies loss of vision Cardiovascular Cardiovascular: Denies chest pain and Denies dyspnea Respiratory Respiratory: Denies cough and Denies dyspnea Gastrointestinal Gastrointestinal: Denies abdominal pain and Denies vomiting Musculoskeletal Musculoskeletal: Denies joint swelling Integumentary/Breasts Skin/Breast: Denies rash Neurologic Neurologic: Denies loss of vision and Denies weakness PFS All Active Problems (Updated 02/26/22 @ 17:32 by Livan Soriano MD) Headache (Acute) Essential hypertension (Acute) DM (diabetes mellitus) (Chronic) Secondary malignant neoplasm of brain (Acute ~09/2021) 10/09/21 [facility] ONC - MRI and Simulation for Radiation Therapy Planning Malignant neoplasm of lower third of esophagus (Acute ~07/23/21) Small intestinal bacterial overgrowth (Acute ~07/2021) Nausea without vomiting (Acute ~07/2021) Functional dyspepsia (Acute ~07/2021) Irritable bowel syndrome with diarrhea (Acute ~07/2021) with diarrhea Esophageal cancer (Acute) Pressure in head (Acute) Verruca vulgaris (Acute) Per [facility] Sensorineural hearing loss (SNHL) of both ears (Acute) History of rotator cuff surgery (Acute) Sacral pain (Acute) Diverticulosis (Acute) Lymphopenia (Acute ~03/2021) Lower back pain (Acute) 04/04/21-[facility] note- MRI of pt's lumbosacral region performed at [facility] on 03/05 demonstrates moderate neuroforaminal marrowing at L4-5vwhich is moderate on the right, and mild on the left. Dr. Amato Dyspepsia (Acute) 04/02/21 Positive hydrogen breath test ([facility] Hearing difficulty (Acute) Blocked ear (Acute) Coccyx pain (Acute) Radiculopathy, lumbar region (Acute) Colon polyp, hyperplastic (Acute ~10/2020) Tubular adenoma (Acute ~10/2020) Pancreatic insufficiency (Acute) Tobacco abuse (Acute) Sebaceous cyst (Acute) Anemia (Chronic) IFG (impaired fasting glucose) (Acute) Malignant neoplasm of esophagus, unspecified (Acute) Upper GI endoscopy 11/02/19[place] 01/25/20 completed Radiation -Dr Carney Arthralgia (Acute) Inverse psoriasis (Acute) 12/20/18 Mari Franz Type 2 diabetes mellitus without complication (Chronic) Tubular adenoma of colon (Chronic 07/24/17) sessile serrated adenoma Tobacco use (Chronic) Osteoarthritis of multiple joints (Chronic) Obesity (Chronic 10/21/17) Hyperlipidemia (Chronic) 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 associated with spondyloarthropathy Gastro-esophageal reflux disease without esophagitis (Chronic) Upper GI endoscopy 11/02/19 [facility]wait[place] Essential hypertension (Chronic) Active Problem List Esophageal cancer (Acute) Pressure in head (Acute) Verruca vulgaris (Acute) Sensorineural hearing loss (SNHL) of both ears (Acute) History of rotator cuff surgery (Acute) Sacral pain (Acute) Diverticulosis (Acute) Lymphopenia (Acute ~03/2021) Lower back pain (Acute) Dyspepsia (Acute) Hearing difficulty (Acute) Blocked ear (Acute) Coccyx pain (Acute) Radiculopathy, lumbar region (Acute) Colon polyp, hyperplastic (Acute ~10/2020) Tubular adenoma (Acute ~10/2020) Pancreatic insufficiency (Acute) Tobacco abuse (Acute) Sebaceous cyst (Acute) Anemia (Chronic) IFG (impaired fasting glucose) (Acute) Malignant neoplasm of esophagus, unspecified (Acute) Arthralgia (Acute) Inverse psoriasis (Acute) Type 2 diabetes mellitus without complication (Chronic) Tubular adenoma of colon (Chronic 07/24/17) Tobacco use (Chronic) Osteoarthritis of multiple joints (Chronic) Obesity (Chronic 10/21/17) Hyperlipidemia (Chronic) 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/17) Gastro-esophageal reflux disease without esophagitis (Chronic) Essential hypertension (Chronic) Medical History DM (diabetes mellitus) Essential hypertension GERD (gastroesophageal reflux disease) Tobacco use Surgical History Colonoscopy - MAC (07/24/17) H/O esophagectomy 03/01/20 distal 2/3 removed(RIZWANA MARGOT) [facility] [place] H/O local excision of skin lesion (04/30/21) Follicular cyst left mid cheek excision [facility]lectomy Hx of tonsillectomy Family History (Updated 08/06/21 @ 15:23 by Marlene Ford RN) Mother Cancer Diabetes Father Cancer prostate Social History (Updated 08/06/21 @ 15:22 by Marlene Ford RN) Smoking/Tobacco Use Status: Current every day Tobacco Type: cigarettes Smoking packs per day: 1 Smoking cigarettes per day: 20.0 Years smoked: 30 Smoking pack-years: 30.00 Tobacco: How many years used: 30 Smoking risk assessment performed?: Yes Alcohol Intake: current Alcohol Intake frequency: a few times a month Drug use: Never Substance use type: does not use Adopted: No Caregiver/Support person: No Foster care: No Household members: spouse Housing: house Number of Children: 3 Communication Needs: None Education Level: high school Do you need help understanding health information?: Never current occupation: Disabled Pets and animals: Yes Pets and animals: dog(s) Sexually active: Yes Do you think of yourself as: straight/heterosexual Current gender identity: male What is your relationship status?: How often do you talk on the phone with friends or family?: three or more times per week How often do you get together with friends or relatives?: once per week Do you belong to any clubs or organized social groups?: no Panel score (0-1 are the most socially isolated patients): 2 What type of physical activity do you participate in: walking Pooja/Restorationism: Confucianist Special pooja needs: No Seatbelt use: always Helmet use: Yes Helmet use: always Drive intox or ride w/intox hammer driver: No Do you feel safe at home: Yes Do you feel safe in your relationship?: Yes Exam Const General: no acute distress Orientation: alert HENMD Head: normal to inspection Ears: external ears normal General nose exam: external nose normal Mouth: moist mucous membranes Eyes General: appearance normal, both eyes and all related structures Neck Neck: normal visual inspection, full ROM, lymphadenopathy noted, meningismus present, trachea midline and supple Resp Effort & Inspection: normal respiratory effort and able to speak in complete sentences Cardio Rate: regular rate Skin General skin exam: no rashes or lesions noted Neuro General: patient alert and patient oriented x3 Extrem General: normal to inspection Psych Mental Status: mental status grossly normal Course Vital Signs Vital signs: Vital Signs Temperature 36.7 C 02/26/22 15:36 Pulse 64 02/26/22 15:36 Respiratory Rate 17 02/26/22 15:36 Blood Pressure 153/89 H 02/26/22 15:36 Pulse Oximetry 100 02/26/22 15:36 Temperature 36.7 C 02/26/22 15:36 Temperature Source Temporal Artery Scan 02/26/22 15:36 Pulse 64 02/26/22 15:36 Respiratory Rate 17 02/26/22 15:36 Blood Pressure 153/89 H 02/26/22 15:36 Blood Pressure Position Sitting 02/26/22 15:36 Pulse Oximetry 100 02/26/22 15:36 Oxygen Delivery Method Room Air 02/26/22 15:36 Oxygen Flow Rate 0 02/26/22 15:36 Pain Level 9 02/26/22 15:36 Comment 02/26/22 15:36
[2022-02-26 16:01] LABS: Abs Immature Grans 0.01 10^3/uL (0.0-0.06); Absolute Basophil Count 0.04 10^3/uL (0.0-0.2); Absolute Eosinophil Count 0.04 10^3/uL (0.0-0.7); Absolute Lymphocyte Count 1.16 10^3/uL (1.2-3.4); Absolute Monocyte Count 0.43 10^3/uL (0.1-0.8); Absolute Neutrophil Count 2.85 10^3/uL (1.2-6.7); Basophils % 0.9; Eosinophils % 0.9; HCT 42.2 % (40.0-50.0); HGB 14.4 g/dL (13.5-17.5); Immature Grans % 0.2; Lymphocytes % 25.6; MCH 31.1 pg (27.0-33.0); MCHC 34.1 % (32.0-36.0); MCV 91 fL (80-95); MPV 9.4 fL (8.0-11.0); Monocytes % 9.5; Neutrophils % 62.9; Platelet Count 208 10^3/uL (130-400); RBC 4.63 10^6/uL (4.36-5.78); RDW 13.4 % (11.8-14.1); RDW-SD 45.5 fL; WBC 4.53 10^3/uL (4.4-10.8)
[2022-02-26] MEDS: Normal Saline 1,000 ML 1000 ML IV (16:03)
[2022-02-26] MEDS: Prochlorperazine 10 MG/2 ML VIAL IVP (16:07)
[2022-02-26] MEDS: Dexamethasone 10 MG/ML VIAL IVP (16:07)
[2022-02-26] MEDS: diphenhydrAMINE 50 MG/ML VIAL 25 MG IVP (16:08)
[2022-02-26] MEDS: Normal Saline 50 ML 100 ML (16:11)
[2022-02-26 16:14] LABS: Source Nasal/Nares
[2022-02-26 16:15] LABS: ALT 22 U/L (16-63); AST 23 U/L (15-37); Alkaline Phosphatase 140 U/L (46-116); Anion Gap 6.6 mmol/L (3-11); BUN 16 mg/dL (7-18); Bilirubin, Total 0.5 mg/dL (0.2-1.0); CO2 28.4 mmol/L (21.0-32.0); CREATININE 0.9 mg/dL (0.70-1.30); Calcium 9.1 mg/dL (8.5-10.1); Chloride 105 mmol/L (98-107); Glucose 125 mg/dL (74-106); Magnesium 2.1 mg/dL (1.8-2.4); Potassium 4.1 mmol/L (3.5-5.1); Sodium 140 mmol/L (136-145); Total Protein 7.5 g/dL (6.4-8.2)
[2022-02-26 17:24] LABS: COVID-19 PCR Negative (Negative)
== END 2022-02-26 17:42 | disposition home or self-care (01) ==
PROVIDERS: Emergency Provider Emergency Medicine; PCP Nurse Practitioner
DX: R51.9 Headache, unspecified (principal); R11.0 Nausea; C79.31 Secondary malignant neoplasm of brain; Z79.899 Other long term (current) drug therapy
CPT/HCPCS: 36415; 80053; 87635; 96361; 96374; 96375; 99284; 70450; 83735; 85025; J0780; J1100; J1200

== ENCOUNTER 2022-03-21 12:33 | Emergency (ER) | payer BC, SELFPAY ==
[2022-03-21 12:42] VITALS: BP 110/72; PULSE 65; RESP 18; TEMP 36.5; O2SAT 97
--- NOTE | 2022-03-21 13:00 | DI.CT_ITS ---
Exam(s) CT ABDOMEN PELVIS WO EXAM: CT ABDOMEN PELVIS WO CLINICAL HISTORY: diarrhea, dehydration. TECHNIQUE: Imaging Protocol: Axial computed tomography images with coronal and sagittal reformatted images were created and reviewed. COMPARISON: No exams were available for comparison FINDINGS: ABDOMEN: Lung Bases: The patient is status post gastric pull-up. Coronary artery calcifications are seen. Mi ld cardiomegaly. Liver: Normal density. No measurable mass. There is a 0.6 cm peripherally calcified cyst in the dome of the liver. Gallbladder and biliary tract: No radiodense calculus or biliary ductal dilation. Pancreas: Pancreatic atrophy is present. Spleen: Normal. Kidneys: Normal size, contour and axis.No radiodense stones or obstructive uropathy. There are severa l bilateral simple renal cysts present. The largest is in the left lobe and measures 8.3 x 7 cm. Adrenal glands: No mass is seen. Lymph nodes: Within normal limits. Abdominal Aorta: Abdominal portion non-dilated. Atherosclerosis is present. PELVIS: Bladder:Symmetric distention, no gross wall thickening. Bowel: No obstruction or bowel wall thickening. Appendix is unremarkable. There is diverticulosis of the sigmoid colon but no evidence of acute diverticulitis. There is a fat density lesion adjacent t o the colon in the hepatic flexure. Its appearance is suggestive of epiploic appendagitis. Clinical correlation is recommended. Peritoneal cavity: No ascites, collection or mesenteric inflammatory response. No free air. Reproductive organs: Mildly enlarged prostate gland. Bones: Within normal limits. Soft Tissues: Within normal limits. IMPRESSION: 1. Findings suggestive of epiploic appendagitis in the hepatic flexure. 2. Sigmoid diverticulosis but no evidence of acute diverticulitis. 3. Bilateral renal cysts. 4. Results of this exam have been verbally communicated with provider. RADIATION DOSE DELIVERED: 865.62mGy.cm Total DLP DATA REPOSITORY: All CT scans at this facility are submitted to the National Radiology Data Registry (NRDR) Dose Index Registry (DIR) with the [employer] (A[employer]). RADIATION OPTIMIZATION: All CT scans at this facility use at least one of these dose optimization te chniques: automated exposure control; mA and/or kV adjustment per patient size (includes targeted exa ms where dose is matched to clinical indication); or iterative reconstruction.
--- NOTE | 2022-03-21 13:00 | DI.CT_ITS ---
Exam(s) CT HEAD WO EXAM: CT HEAD WO CLINICAL HISTORY: syncope, head injury. TECHNIQUE: Imaging Protocol: Axial computed tomography images with coronal and sagittal reformatted images were created and reviewed COMPARISON: CT CT HEAD WO from 02/26/2022 FINDINGS: Ventricles and Extra axial spaces: Normal in size and morphology for the patient's age. Hemorrhage: None. Cerebral parenchyma: No acute territorial infarct. Old bilateral lacunar infarcts are present. Ther e are areas of decreased attenuation in the white matter consistent with small vessel ischemic diseas e. Midline shift: None. Brainstem/Cerebellum: Normal. Calvarium: Normal. Visualized Paranasal sinuses/Mastoids: Clear. Soft Tissues: Unremarkable. IMPRESSION: 1. No acute intracranial process. 2. Results of this exam have been verbally communicated with provider. RADIATION DOSE DELIVERED: 831.99mGy.cm Total DLP DATA REPOSITORY: All CT scans at this facility are submitted to the National Radiology Data Registry (NRDR) Dose Index Registry (DIR) with the [employer] (ACR). RADIATION OPTIMIZATION: All CT scans at this facility use at least one of these dose optimization te chniques: automated exposure control; mA and/or kV adjustment per patient size (includes targeted exa ms where dose is matched to clinical indication); or iterative reconstruction.
--- NOTE | 2022-03-21 13:00 | RT.EKG_ITS ---
APPROVED REPORT Exam: Resting ECG Reason for Exam: syncope Patient Location: E HR:61 bpm ECG Measurements Heart Rate 61 AXIS WY 188 P -19 QRSd 102 QRS 26 QT 407 T -24 QTc 412 Conclusion Sinus rhythm...normal P axis, V-rate 60- 99 Low voltage, extremity and precordial leads...extremity<0.5mV, precordial<1.0mV sinus rhythm, normal axis, t wave inversion II III aVF
--- NOTE | 2022-03-21 13:02 | DI.RAD_ITS ---
Exam(s) XR CHEST 2V PA LATERAL EXAM: XR CHEST 2V PA LATERAL CLINICAL HISTORY: diarrhea, syncope TECHNIQUE: 2D digital imaging was performed of the chest. Two images were obtained. PA and lateral views were obtained. COMPARISON: CR XR CHEST 2V PA LATERAL from 01/18/2020 FINDINGS: MEDIASTINUM: Normal. HEART: Normal. PULMONARY VASCULATURE: Normal. LUNGS: Clear. PLEURAL SPACE: No pleural effusion or pneumothorax. BONE:Within normal limits for the patient's age. OTHER FINDINGS:Normal. IMPRESSION: No acute pulmonary findings. DATA REPOSITORY: RADIATION DOSE DELIVERED:
[2022-03-21] MEDS: Normal Saline 1,000 ML 1000 ML IV (13:20)
--- NOTE | 2022-03-21 13:20 | ED.GENADUL_ITS ---
Discharge Plan Disposition Patient Disposition: HOME Condition: Improving Discharge Details Chief Complaint: GenMedical Clinical Impression: Acute dehydration, Diarrhea Primary Care Provider: Baylee Lozoya ED Provider: Juanito Viramontes Home Meds and New Rx's Prescriptions: No Action hawthorn 500 mg capsule 565 mg PO BID ferrous sulfate [Iron (ferrous sulfate)] 325 mg (65 mg iron) tablet 325 mg PO DAILY Hold Instructions: Home Medication placed on hold at Doctor's office multivitamin Tablet 1 tab PO DAILY Rx Instructions: 03/07/20 [facility] [place] Thoracic Surgery. Kina Kay losartan 100 mg tablet 100 mg PO DAILY Qty: 90 3RF Hold Instructions: Home Medication placed on hold at Doctor's office buspirone 10 mg tablet 10 mg PO BID Qty: 180 3RF melatonin 5 MG tablet 5 mg PO HS nystatin 15 GM cream 1 gm Topical TID Qty: 15 Rx Instructions: Apply TID to afftected area, groin rash. calcipotriene [Dovonex] 0.005 % cream 1 applic TP BID PRN Label Comments: 12/20/18 Derm Hammer twice daily to psoriasis and groin area acetaminophen 500 mg capsule 1,000 mg PO Q6H PRN Rx Instructions: 11/21/19- reported ([facility] note) take 1000 mg by mouth every 6 hrs as needed for pain (varies daily at least two to three doses daily) omeprazole 20 mg capsule,delayed release(DR/EC) 20 mg PO DAILY Rx Instructions: 08/15/21- [facility] GI progress note; continue daily 30 min-1 hr before breakfast. Pt should try to wean or minimizing dose,and stopping completely,based on pt preference to see if sx's can improve over time. Lee Reyes APRN ibuprofen 800 mg tablet 800 mg PO TID PRN (Reason: fever or pain) Qty: 270 3RF Hold Instructions: Home Medication placed on hold at Doctor's office aspirin [Aspir-81] 81 MG tablet,delayed release (DR/EC) 81 mg PO DAILY magnesium oxide 400 MG tablet 400 mg PO DAILY Qty: 100 0RF ondansetron 4 mg tablet,disintegrating 4 mg PO Q8H PRN (Reason: nausea and vomiting) Qty: 30 0RF Discharge Instructions Instructions: Dehydration (ED), Acute Diarrhea (ED) Additional Instructions: Please follow-up with your primary care physician. Please ensure to stay hydrated consider using Gatorade or Pedialyte at home. Return to the emergency part for any worsening symptoms. Medical Decision Making 61-year-old male history of esophageal cancer status postresection and chemotherapy and radiation in remission presents with generalized fatigue and diarrhea over the past couple of days, had a syncopal episode while standing at home, fell forward hit his head and his right knee, abrasion to forehead and abrasion to right knee, hemodynamically stable at this time although family members noted at home patient had a blood pressure in the 60s systolic. No chest pain or shortness of breath. Has dry oral mucosa and appears pale. Does appear fatigued however is alert and oriented no cranial nerve deficits moving all extremities with full strength. No external signs of fracture or dislocation. Given age and history will obtain CT head chest x-ray EKG CT abdomen pelvis will provide fluids and antiemetics. Likely component of dehydration in setting of viral enterocolitis given recent exposure to granddaughter with similar symptomatology. Muscles consider ACS versus intracranial hemorrhage versus electrolyte abnormality. Low suspicion for knee fracture or dislocation given mobility and exam. 15: 20 patient resting comfortably no acute distress. Feeling better after fluids. On second liter. Incidental epiploic appendagitis. Likely viral diarrhea resolving. Patient feels comfortable HPI General Date/Time Provider Initiated Documentation: 03/21/22 13:02 . HPI Narrative: 61-year-old male history of esophageal cancer status postresection radiation chemotherapy now in remission presents with 1 to 2 days of diarrhea, decreased p.o. intake, of note his granddaughter returned from camp with diarrhea. Patient had a syncopal episode today felt lightheaded when he was standing fell forward hit his head brief loss of consciousness. Also struck his right knee. Denies chest pain denies shortness of breath. Denies history of ulcerative colitis or Crohn's. Related Data Home Medications Medication Instructions Recorded Confirmed aspirin 81 mg tablet,delayed 81 mg PO DAILY 02/14/14 03/21/22 release (Aspir-) melatonin 5 mg tablet 5 mg PO HS 09/15/16 03/21/22 magnesium oxide 400 mg (241.3 mg 400 mg PO DAILY #100 tabs 12/21/16 03/21/22 magnesium) tablet nystatin 100,000 unit/gram topical 1 gm topical TID #15 grams 02/12/17 03/21/22 cream hawthorn 500 mg capsule 565 mg PO BID 06/30/18 03/21/22 calcipotriene 0.005 % topical 1 applic topical BID PRN 12/21/18 03/21/22 cream (Dovonex) acetaminophen 500 mg capsule 1,000 mg PO Q6H PRN 11/24/19 03/21/22 ferrous sulfate 325 mg (65 mg 325 mg PO DAILY 01/13/20 03/21/22 iron) tablet (Iron (ferrous sulfate)) multivitamin 1 tab PO DAILY 03/08/20 03/21/22 losartan 100 mg tablet 100 mg PO DAILY #90 tab-caps 01/15/21 03/21/22 omeprazole 20 mg capsule,delayed 20 mg PO DAILY 08/21/21 03/21/22 release buspirone 10 mg tablet 10 mg PO BID #180 tabs 02/06/22 03/21/22 ondansetron 4 mg disintegrating 4 mg PO Q8H PRN nausea and 02/26/22 03/21/22 tablet vomiting #30 tabs ibuprofen 800 mg tablet 800 mg PO TID PRN fever or pain 03/10/22 03/21/22 #270 tab-caps Previous Rx's Medication Instructions Recorded magnesium oxide 400 mg (241.3 mg 400 mg PO DAILY #100 tabs 12/21/16 magnesium) tablet losartan 100 mg tablet 100 mg PO DAILY #90 tab-caps 01/15/21 buspirone 10 mg tablet 10 mg PO BID #180 tabs 02/06/22 ondansetron 4 mg disintegrating 4 mg PO Q8H PRN nausea and 02/26/22 tablet vomiting #30 tabs ibuprofen 800 mg tablet 800 mg PO TID PRN fever or pain 03/10/22 #270 tab-caps Allergies Allergy/AdvReac Type Severity Reaction Status Date / Time lisinopril AdvReac Mild Cough Verified 03/19/22 11:25 Penicillins AdvReac Mild belly ache Verified 03/19/22 11:25 General Stated Complaint: GenMedical MAXWELL: 3 Review of Systems Narrative: Review of Systems Constitutional: Fatigue, syncope Eyes: negative ENT: negative Cardiovascular: negative Respiratory: negative Gastrointestinal: Diarrhea : negative Musculoskeletal: negative Skin: negative Neurologic: negative Psych: negative PFSH All Active Problems (Updated 03/21/22 @ 15:23 by Juanito Viramontes MD) Acute dehydration (Acute) Diarrhea (Acute) Sensation of fullness in both ears (Acute) Anxiety (Chronic) [facility] Headache (Acute) Essential hypertension (Acute) DM (diabetes mellitus) (Chronic) Secondary malignant neoplasm of brain (Acute ~09/2021) 10/09/21 [facility] ONC - MRI and Simulation for Radiation Therapy Planning Malignant neoplasm of lower third of esophagus (Acute ~07/23/21) Small intestinal bacterial overgrowth (Acute ~07/2021) Nausea without vomiting (Acute ~07/2021) Functional dyspepsia (Acute ~07/2021) Irritable bowel syndrome with diarrhea (Acute ~07/2021) with diarrhea Esophageal cancer (Acute) Pressure in head (Acute) Verruca vulgaris (Acute) Per [facility] Derm note from 05/07/21 Sensorineural hearing loss (SNHL) of both ears (Acute) History of rotator cuff surgery (Acute) Sacral pain (Acute) Diverticulosis (Acute) Lymphopenia (Acute ~03/2021) Lower back pain (Acute) 04/04/21-[facility] note- MRI of pt's lumbosacral region performed at [facility] on 03/05 demonstrates moderate neuroforaminal marrowing at L4-5vwhich is moderate on the right, and mild on the left. Dr. Amato Dyspepsia (Acute) 04/02/21 Positive hydrogen breath test ([facility] GI) Hearing difficulty (Acute) Blocked ear (Acute) Coccyx pain (Acute) Radiculopathy, lumbar region (Acute) Colon polyp, hyperplastic (Acute ~10/2020) Tubular adenoma (Acute ~10/2020) Pancreatic insufficiency (Acute) Tobacco abuse (Acute) Sebaceous cyst (Acute) Anemia (Chronic) IFG (impaired fasting glucose) (Acute) Malignant neoplasm of esophagus, unspecified (Acute) Upper GI endoscopy 11/02/19-[facility] Dr You 01/25/20 completed Radiation -Dr Carney Arthralgia (Acute) 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 Rheum Dr Mittal. associated with spondyloarthropathy Gastro-esophageal reflux disease without esophagitis (Chronic) Upper GI endoscopy 11/02/19 [facility] - Awaiting pathology Essential hypertension (Chronic) Medical History GERD (gastroesophageal reflux disease) Tobacco use Surgical History Colonoscopy - MAC (07/24/17) H/O esophagectomy 03/01/20 distal 2/3 removed(RIZWANA FROST) [facility] H/O local excision of skin lesion (04/30/21) Follicular cyst left mid cheek excision [facility] H/O uvulectomy Hx of tonsillectomy Family History Mother Cancer Diabetes Father Cancer prostate Social History Smoking/Tobacco Use Status: Current every day Tobacco Type: cigarettes Smoking packs per day: 1 Smoking cigarettes per day: 20.0 Years smoked: 30 Smoking pack-years: 30.00 Tobacco: How many years used: 30 Smoking risk assessment performed?: Yes Alcohol Intake: current Alcohol Intake frequency: a few times a month Drug use: Never Substance use type: does not use Adopted: No Caregiver/Support person: No Foster care: No Household members: spouse Housing: house Number of Children: 3 Communication Needs: None Education Level: high school Do you need help understanding health information?: Never current occupation: Disabled Pets and animals: Yes Pets and animals: dog(s) Sexually active: Yes Do you think of yourself as: straight/heterosexual Current gender identity: male What is your relationship status?: How often do you talk on the phone with friends or family?: three or more times per week How often do you get together with friends or relatives?: once per week Do you belong to any clubs or organized social groups?: no Panel score (0-1 are the most socially isolated patients): 2 What type of physical activity do you participate in: walking Pooja/Nondenominational: Religion Special pooja needs: No Seatbelt use: always Helmet use: Yes Helmet use: always Drive intox or ride w/intox truck driver heavy: No Do you feel safe at home: Yes Do you feel safe in your relationship?: Yes Exam Narrative Exam Narrative: Physical Examination General: alert, awake, cooperative, resting comfortably, appears fatigued HEENT: normocephalic, atraumatic; PERRL, EOM intact, conjunctiva normal; no nasal discharge; dry oral mucosa Neck: supple, trachea midline; full ROM Chest: normal to inspection Respiratory: normal respiratory effort, speaking in full sentences, clear to auscultation, no wheezing, rales or rhonchi Cardiac: regular rate, regular rhythm, S1S2 intact, no murmurs rubs or gallops GI: abdomen soft, non-tender, non-distended; no palpable mass or hepatosplenomegaly Skin: no lesions, rashes or trauma appreciated Neuro: AAOx3, normal speech, moving all extremities cranial nerves intact, 5/5 strength upper and lower extremities Extremities: Superficial abrasion to prepatellar soft tissue of right knee, full range of motion no effusion no crepitus no laxity Psych: Appropriate mood and affect Course Vital Signs Vital signs: Vital Signs Temperature 36.5 C 03/21/22 12:42 Pulse 65 03/21/22 12:42 Respiratory Rate 18 03/21/22 12:42 Blood Pressure 110/72 03/21/22 12:42 Pulse Oximetry 97 03/21/22 12:42 Temperature 36.5 C 03/21/22 12:42 Temperature Source Temporal Artery Scan 03/21/22 12:42 Pulse 65 03/21/22 12:42 Respiratory Rate 18 03/21/22 12:42 Respiratory Effort Non-Labored 03/21/22 12:45 Blood Pressure 110/72 03/21/22 12:42 Blood Pressure Position Supine 03/21/22 12:42 Pulse Oximetry 97 03/21/22 12:42 Oxygen Delivery Method Room Air 03/21/22 12:42 Oxygen Flow Rate 0 03/21/22 12:42 Pain Level 0 03/21/22 12:42
[2022-03-21] MEDS: Ondansetron 4 MG/2 ML VIAL IVP (13:21)
[2022-03-21 13:22] LABS: Abs Immature Grans 0.03 10^3/uL (0.0-0.06); Absolute Basophil Count 0.03 10^3/uL (0.0-0.2); Absolute Eosinophil Count 0.03 10^3/uL (0.0-0.7); Absolute Lymphocyte Count 0.62 10^3/uL (1.2-3.4); Absolute Monocyte Count 0.64 10^3/uL (0.1-0.8); Basophils % 0.9; Eosinophils % 0.9; HCT 42.4 % (40.0-50.0); HGB 14.6 g/dL (13.5-17.5); Immature Grans % 0.9; Lymphocytes % 17.6; MCH 31.7 pg (27.0-33.0); MCHC 34.4 % (32.0-36.0); MCV 92 fL (80-95); MPV 9.2 fL (8.0-11.0); Monocytes % 18.2; Neutrophils % 61.5; Platelet Count 179 10^3/uL (130-400); RBC 4.61 10^6/uL (4.36-5.78); RDW 13.9 % (11.8-14.1); RDW-SD 46.8 fL; WBC 3.52 10^3/uL (4.4-10.8)
[2022-03-21 13:24] LABS: Absolute Neutrophil Count 2.16 10^3/uL (1.2-6.7)
[2022-03-21 13:44] VITALS: RESP 18
[2022-03-21 13:47] LABS: ALT 27 U/L (16-63); AST 36 U/L (15-37); Albumin 3.7 g/dL (3.4-5.0); Alkaline Phosphatase 109 U/L (46-116); Anion Gap 8.1 mmol/L (3-11); BUN 22 mg/dL (7-18); Bilirubin, Total 0.3 mg/dL (0.2-1.0); CO2 25.9 mmol/L (21.0-32.0); CREATININE 1.2 mg/dL (0.70-1.30); Calcium 8.8 mg/dL (8.5-10.1); Chloride 102 mmol/L (98-107); Glucose 102 mg/dL (74-106); Sodium 136 mmol/L (136-145); Total Protein 7.3 g/dL (6.4-8.2); Troponin I < 50 ng/L (<or=60)
--- NOTE | 2022-03-21 15:12 | PDOC.ERCMPRO ---
- If Service Date Differs Date of service: 03/21/22 Time of Service: 15:12 Care Management Progress Note SBIRT Screen poisitive for nicotine. Pt notes he has cut down from a pack a day to 1/2 pack a day. Smoking cessation resources were shared with Pt and partner.
== END 2022-03-21 16:45 | disposition home or self-care (01) ==
PROVIDERS: Emergency Provider Emergency Medicine; PCP Nurse Practitioner
DX: E86.0 Dehydration (principal); S80.211A Abrasion, right knee, initial encounter; S00.81XA Abrasion of other part of head, initial encounter; F17.210 Nicotine dependence, cigarettes, uncomplicated; W19.XXXA Unspecified fall, initial encounter; W22.8XXA Striking against or struck by other objects, initial encounter; K63.89 Other specified diseases of intestine
CPT/HCPCS: 80053; 93005; 96361; 96374; 99284; 70450; 71046; 74176; 84484; 85025; 93010; 99285; J2405

== ENCOUNTER → 2022-06-18 02:15 | Outpatient (CLI) | payer BC, SELFPAY ==
--- NOTE | 2022-06-18 | DI.MRI_ITS ---
Exam(s) MR BRAIN WO/W EXAM: MR BRAIN WO/W CLINICAL HISTORY: ESOPHAGUS CA,C15.9,ASSESS TREATMENT RESPONSE,NEW SOLITARY BRAIN NODULE,S/P TECHNIQUE: Multiplanar multisequence MRI of the brain was performed. Post contrast imaging was also obtained, with T1 weighted axial and coronal imaging and multi planar T1 MP rage imaging. COMPARISON: MR MR BRAIN WO/W from 02/18/2022 FINDINGS: There is mild generalized cerebral atrophy period. There are scattered white matter signal abnormalities consistent with microvascular ischemic changes and there are bilateral lacunar infarcts. These findings are essentially unchanged from prior examin ations including February 18 . Previously described enhancing lesion of the right parietal occipital region has increased in size si nce the prior examination, this previously measured about 2 x 3 millimeters and now measures 5 x 5 mi llimeters and shows more intense enhancement. Lesion also shows some signal void on susceptibility w eighted imaging consistent with intralesional hemorrhage or other para magnetic phenomenon. There is considerable para lesional edema, markedly increased from the prior study. No additional suggestion of hemorrhage elsewhere in the brain. The orbital and temporal bone structures appear intact as does the pituitary. Diffusion weighted imaging shows no evidence of infarction. There is normal flow void in the [place] vasculature. There is no evidence of a mass lesion or enhancing lesion in the brain. IMPRESSION: Interval increase in size and enhancing intensity of previously noted presumed right parieto-occipita l metastatic lesion. Increased perilesional edema also noted. DATA REPOSITORY:
[2022-06-18] MEDS: Normal Saline Flush 10 ML SYR IVP (12:39)
[2022-06-18 12:48] LABS: CREATININE 0.9 mg/dL (0.70-1.30); Estimated GFR 97.78 (mL/min/1.73m2)
== END ==
PROVIDERS: PCP Nurse Practitioner; Visit Provider Nurse Practitioner Family
DX: C15.9 Malignant neoplasm of esophagus, unspecified (principal); R94.02 Abnormal brain scan
CPT/HCPCS: 70553; 82565